=== PATIENT | male | born 1930 | race Caucasian/White ===

== ENCOUNTER 2017-04-10 10:34 | Inpatient (IN) | payer MEDICARE ==
[~2017-04-10] VITALS: Ht 177.8 cm; Wt 77.7 kg
[2017-04-10] VITALS (10 sets, daily range): BP systolic 72–146; BP diastolic 55–79; PULSE 81–91; RESP 14–22; O2SAT 94–100
--- NOTE | 2017-04-10 10:53 | ED.REPORT ---
HPI-Chest Pain 40 and Over Date of Service April 10, 2017 ED Provider: Brian Reyez MD The patient is an 87 year old male with history of hypertension, hyperlipidemia and prior strokes, who was sent to the emergency department from urgent care for upper chest pain that began 3 weeks ago. The pain goes up into his neck and jaw. He has also noticed shortness of breath. He has had intermittent episodes since onset. He states, "when I get outside it just feels like I am getting some poisonous gas." He goes on multiple walks each day and has been experiencing the episodes each time he goes on a walk. He is able to finish his walks. When he gets back home and rests his symptoms go away. His symptoms typically last for about 10-12 minutes. He denies diaphoresis, nausea, vomiting , chills, fever, cough, extremity pain or swelling, abdominal pain or back pain. His family is concerned because he has not looked well for a few weeks. He has been "stumbling" and seems generally off-balance. He has been refusing his medication, although he has still been taking aspirin. Nursing Notes Stated Complaint: CHEST PAIN Chief Complaint: Chest Pain Nursing Notes Reviewed: Yes ([employer], meds not reconciled) Allergies: Coded Allergies: No Known Allergies (Unverified Allergy, Unknown, 10/10/15) General Time Seen by MD: 10:52 Chief Complaint Chest pain Hx Obtained From: Patient, Daughter Arrived By: Walk-in Sudden in Onset?: Yes Onset Occurred: More than a week ago... Symptom Duration: Intermittent Location: : Chest left: Chest right Quality: Painful Severity: Current: No pain currently Severity: Maximum: Moderate Recent Healthcare: No recent doctor visit, No recent hospitalization Similar Sx Previous: Yes Past Medical History Past Medical History Hypertension Hx of TIA (2014) Hyperlipidemia Past Surgical History None reported Family History Noncontributory Smoking History Former Smoker (smoked for 40 years, quit over 30 years ago) Social History The patient lives at [place] with his . Drug Use: Denies drug use Other Social History: Good social support, , Local resident Ambulatory Status Independent Review of Systems Review of Systems Note: +neck/jaw pain Constitutional: Denies: Chills, Fever Respiratory: Reports: Shortness of breath, Denies: Non-productive cough Cardiovascular: Reports: Chest pain, Dyspnea on exertion GI: Denies: Abdominal pain, Nausea, Vomiting Musculoskeletal: Denies: Back pain, Extremity pain, Extremity swelling Complete sys rev & neg: except as marked. Physical Exam Initial Vital Signs Vital Signs (First) Date Time Temp Pulse Resp B/P Pulse Ox O2 Delivery O2 Flow Rate FiO2 04/10/17 10:39 36.4 86 132/78 96 Room Air 04/10/17 11:16 15 Initial VS: Reviewed Head / Eyes: Atraumatic, Normocephalic, PERRL ENT: Mucous membranes moist, Conjunctiva normal, No scleral icterus Neck: Supple, Non-tender, Full range of motion Lymphatic: No lymphadenopathy Extremities: Vascular intact, Neuro intact, No swelling, No tenderness Skin: Warm, Dry, No cyanosis Psychiatric: Mood/affect normal, Behavior normal, Normal thought content General/Constitutional: Awake, Alert, Cooperative Respiratory / Chest: Atraumatic, Breath sounds NL, Breath sounds = bilat, No respiratory distress, No rales, No rhonchi, No wheezing, No stridor, No chest tenderness Cardiovascular: Heart rate NL, Regular rhythm, Heart sounds NL, No murmurs, No rubs Abdomen: Atraumatic, Soft, Non-tender, McBurney's non-tender, No guarding, No rebound, BS normoactive, No distention, No hernia, No palpable mass Neurologic: Oriented X3, Speech NL, No motor deficits, No sensory deficits Mild memory problems. Interpretation & Diagnostics Lab Results Interpretation Result Diagram: 04/10/17 1050 04/10/17 1050 Test 04/10/17 10:50 White Blood Count 9.5th/mm3 (3.8-10.1) Red Blood Count 4.92mil/mm3 (4.40-5.80) Hemoglobin 15.4g/dL (13.8-17.2) Hematocrit 45.0% (41.0-50.0) Mean Corpuscular Volume 91.5fL (81-100) Mean Corpuscular Hemoglobin 31.3pg (27.0-35.0) Mean Corpuscular Hemoglobin Concent 34.2% (32.0-37.0) Red Cell Distribution Width 13.4% (12.3-15.4) Platelet Count 228bil/L (150-400) Neutrophils (%) (Auto) 62.8% (40-74) Lymphocytes (%) (Auto) 26.5% (14-46) Monocytes (%) (Auto) 8.1% (4-12) Eosinophils (%) (Auto) 1.8% (0-5) Basophils (%) (Auto) 0.6% (0-3) Sodium Level 135mEq/L (134-144) Potassium Level 4.8mEq/L (3.5-5.2) Chloride Level 94mEq/L (97-108) Carbon Dioxide Level 27mmol/L (18-29) Blood Urea Nitrogen 12mg/dL (8-27) Creatinine 1.00mg/dL (0.76-1.27) Estimat Glomerular Filtration Rate 75mL/min (>59) Glucose Level 334mg/dL (60-99) Calcium Level 10.0mg/dL (8.5-10.1) Magnesium Level 2.1mg/dL (1.6-2.6) Total Bilirubin 0.6mg/dL (0.0-1.2) Aspartate Amino Transf (AST/SGOT) 39U/L (0-50) Alanine Aminotransferase (ALT/SGPT) 46U/L (0-44) Alkaline Phosphatase 66U/L (25-160) Troponin T 0.126ug/L (0.0-0.011) Total Protein 7.6g/dL (6.4-8.4) Albumin 4.0g/dL (3.4-5.0) Lab Results Interpretation: CBC normal CMP Hyperglycemia Troponin elevated consistent with acute coronary syndrome ECG Interpretation ECG Interpretation: Sinus rhythm with a rate of 85 RBBB LAFB No acute ischemic changes No interval change when compared to EKG from 09/2015 Time: 11:10 Interpreted by: ED physician X-Ray Chest Interpretation Chest Xray Interpretation: IMPRESSION: Stable chest. No acute cardiac pulmonary process is suspected. Dictated by: Sebastien Romero M.D. on 04/10/2017 at 10:22 Interpretation / Wet Read by: Interpret - Radiologist Re-Eval/Medical Decision Source of Hx: Old records, Family Time of Eval: 11:06 Re-Evaluation/Progress Note: Discussed plan for admission with the patient and his family member. They understand and agree. All questions were addressed. Consultation #1: Referral / Consult Name: Cheryl Chandler MD Consulted With: Cardiology Call Returned at: 12:00 Note: The patient is agreeable with an echocardiogram, medicaiton, and admission. He does not want a cardiac catheterization at this time. Consultation #2: Referral / Consult Name: Magdaleno Lorenzana MD Consulted With: Hospitalist Call Returned at: 12:18 Freight Broker Agent: Will see patient, Agrees with eval, Agrees with plan, Accepts admit Counseled Regarding: Diagnosis, Lab results, Need for admission Discharge & Departure Departure Notes This is an 87-year-old male with mild memory issues, no prior history of known disease who has had prior TIAs, and takes only aspirin daily. He is apparently supposed to be on hypertensive medicine, but does not like taking medicines at all. He presents today with great difficulty-the assisted living where he lives , and his family have been adequately concerned that he come to the emergency department. The patient walks multiple times a day, this noted over the past 2- 3 weeks that anytime he walks he gets a chest discomfort (he is very specific that he does not get pain) that radiates into his neck and jaw and is like an ache. He continues his walk, and symptoms resolved once he rests. But every time he walks it recur. Apparently he did not look well when this happened this morning, and the facility is been trying to get him to calm C provider- call his family as the patient refused to come in by 911, who ultimately able to convince the patient to come to the emergency department. Here in the department the patient denies any pain medicine. He is also Hira about medical care and is not very excited about medications-he is under the belief that several medicines cause rash or skin problems (the family indicates this is simply not true numbness patient this impression or false memory, but regardless the patient's very has about taking any new medications due to this concerns regarding rashes) The patient's in no visible distress and has no overt clinically evident heart failure on exam. Patient has no clear acute ischemic or interval change compared prior EKG. However lab work is consistent with an elevated troponin which fits with the clinical presentation of unstable angina and in STEMI. he did have an aspirin prior to arrival, and after lengthy discussion agreed to nitro paste, and heparin administration of the department, and ultimately even a single dose of by mouth beta -valorie in the department. I had a long conversation at bedside with the patient and family. The family are obviously very interested in seeking medical care and when I recommended discussing his options with a dredge or barge shore hand-as I have indicated that he might be a reasonable For cardiac catheterization and is interested, but that it would involve medication compliance should he choose that route. In the ending combination of the patient's, family bedside he is agreed to admission, he is agreed to us at least medical therapy, and is agreed to see the dredge or barge shore hand discuss options available to him we can make a decision. I Was able to consult the dredge or barge shore hand Dr. Linares who saw the patient. Please see his note. Apparently the patient has declined cardiac catheterization at this time, but has agreed to attempting medical therapy. The patient's also agreed to admission at this time. Plan is continued heparinization, and a echo will be obtained was admitted to have help further direct therapy. The hospitalist is being paged. The patient is also informed that his test do indicate he has new-onset type II diabetes, I have focused on trying to get compliance with a cardiac regimen, and has not purchased the topic of trying medical therapy for the hyperglycemia. Primary Impression: Unstable angina Additional Impressions: Non-STEMI (non-ST elevated myocardial infarction) New onset type 2 diabetes mellitus Disposition: ADMITTED TO HOSPITAL Discharge Condition All VS Reviewed: Yes Condition: Stable Referrals: OTHER,PHYSICIAN (PCP) Scribe Attestation Portions of this note were transcribed by Kristal Guzman. I, Dr. Reyez personally performed the history, physical exam and medical decision-making; I reviewed and confirmed the accuracy of the information in the transcribed note. Signed by: Lyndon Mckeon, 04/10/2017 at 1230. Brian Reyez MD April 10, 2017 10:53 Kristal Guzman April 10, 2017 11:01
[2017-04-10 10:58] LABS: BASOPHILS % (AUTO) 0.6 % (0-3); EOSINOPHILS % (AUTO) 1.8 % (0-5); MONOCYTES % (AUTO) 8.1 % (4-12); Mean Corpuscular Hemoglobin 31.3 pg (27.0-35.0); Mean Corpuscular Volume 91.5 fL (81-100); NEUTROPHILS % (AUTO) 62.8 % (40-74); Platelet Count 228 bil/L (150-400)
[2017-04-10] MEDS ORDERED: Heparin 25K Unit/500mL 0.45 NS 25,000 UNIT in IV Premix 1 EACH IV ONE (11:15)
[2017-04-10] MEDS ORDERED: Nitroglycerin 2% 1 Gm Ointment TOPICAL SCH (11:15)
[2017-04-10] MEDS ORDERED: Heparin 5,000 Unit/mL Inj IVPUSH ONE (11:15)
--- NOTE | 2017-04-10 11:25 | DRSVH ---
PROCEDURE: X-RAY CHEST ONE VIEW, PORTABLE ([id number]) INDICATIONS: chest pain TECHNIQUE: One view of the chest was acquired. COMPARISON: [facility], CR, XR CHEST 1VW (PORTABLE), 07/31/2016, 2:57. FINDINGS: Surgical changes and devices: None. Lungs and pleura: There appears to be mild hyperexpansion of the lungs, which may be related to chron ic obstructive pulmonary disease, in the correct clinical setting. No focal consolidation, effusion, or pneumothorax is evident. Mediastinum: Mediastinal contours appear normal. Heart size is normal. There is aortic atheroscler osis. Bones and chest wall: No suspicious bony lesions. Degenerative changes of the spine and shoulders a re noted. Overlying soft tissues appear unremarkable. IMPRESSION: Stable chest. No acute cardiac pulmonary process is suspected. Dictated by: Sebastien oRmero M.D. on 04/10/2017 at 10:22 Approved by: Sebastien Romero M.D. on 04/10/2017 at 10:23
[2017-04-10 11:34] LABS: Magnesium 2.1 mg/dL (1.6-2.6)
[2017-04-10 11:49] LABS: TROPONIN T 0.126 ug/L (0.0-0.011)
[2017-04-10] MEDS ORDERED: ASPI325T32 PO (12:24)
[2017-04-10] MEDS ORDERED: Alum-Mag Hydrox-Simeth 30 mL Suspension PO PRN ×2 (12:45→13:45)
[2017-04-10] MEDS ORDERED: Ondansetron 2 mg/mL 2 mL Inj IVPUSH PRN ×2 (12:45→13:45)
[2017-04-10] MEDS ORDERED: Polyethylene Glycol (PEG) 17 Gm Powder PO PRN (13:45)
[2017-04-10] MEDS ORDERED: Heparin 25K Unit/500mL 0.45 NS 25,000 UNIT in IV Premix 1 EACH IV SCH (13:50)
[2017-04-10] MEDS ORDERED: Heparin 5,000 Unit/mL Inj IVPUSH PRN (13:50)
[2017-04-10] MEDS ORDERED: Glucose 40% Oral Gel 15 Gm Tube PO PRN (13:55)
--- NOTE | 2017-04-10 13:59 | CONS ---
[address] [address] CONSULTATION REPORT PATIENT: ALEXANDRA GUTIERREZ : 1930 MR#: [id number] ADMIT: 04/10/2017 JOB ID: [id number] CARDIOLOGY CONSULTATION: DATE OF SERVICE: 04/10/2017 REASON FOR CARDIOLOGY CONSULTATION: The Emergency Department physician, Brian Reyez, asked me to see this patient regarding exertional chest pain for the last three weeks. CHIEF COMPLAINT: Exertional chest pain, some shortness of breath. PRESENT HISTORY: This is an 87-year-old, male who has a history of hypertension, hyperlipidemia, TIA in 2014, noncritical carotid artery disease, moderate aortic stenosis based on echocardiogram in November 2015 with preserved LV function, was sent from Urgent Care to the emergency department because of above-mentioned chief complaint. According to the patient, from last three weeks, he noticed that whenever he goes for a walk he feels pressure in his chest as well as pain in his jaw which is not very intense. On a scale of 1-10, it was about 3-4 in intensity. It will continue till he walks; however when he sits up, it goes away. Duration 15-20 minutes. It has been happening everyday in the morning when he takes his first walk. Subsequent walk, he does not feel much. No dizziness or syncopal episode. However sometimes he gets shortness of breath. No fever, chills, PND, orthopnea or typical claudication pain. He had an echocardiogram in November 2015, and his LV ejection fraction was 65% to 70% with mild to moderate concentric LVH, moderate aortic stenosis with valve area 1.1 cm2 with peak aortic valve velocity 3 m/sec and mean gradient about 24.4 mmHg. Angiographic MRI in September 2015 did not reveal any critical carotid artery stenosis. Carotid Doppler in November 27, 2015, less than 50% bilateral ICA disease. The patient does not want to take any medication and he is on aspirin only. PAST MEDICAL HISTORY: History of moderate aortic stenosis, noncritical carotid artery disease, essential hypertension, hyperlipidemia, right bundle branch block, left anterior fascicular block, TIA. PAST SURGICAL HISTORY: Denies. FAMILY HISTORY: Noncontributory. SOCIAL HISTORY: He smoked about 40 years ago for a total of 40 years. Denies any excessive alcohol abuse. MEDICATIONS: He was taking aspirin. ALLERGIES: Denies any allergies. REVIEW OF SYSTEMS: Ten point review of systems were obtained. They were negative except as stated above. PHYSICAL EXAMINATION: Blood pressure 146/72, heart rate 83, respiratory rate 14, oxygen saturation room air 98%. Head: No significant anemia, jaundice. Neck: No apparent JVP. No obvious carotid bruit. Chest: No obvious crepitation or rhonchi. CVS: S1, S2 normal. No S3, no S4. Grade II-III/ ejection systolic murmur at the base as well as lower sternal area. Abdomen: Obese. No obvious pulsatile mass felt. No obvious hepatosplenomegaly. Extremities: Mild pedal edema. Vascular: No evidence of critical limb ischemia. MANAGER DESKTOP: Alert, oriented to time, place, and person. The patient is hard of hearing as well. LABORATORY DATA: Sodium 135, potassium 4.8, BUN 12, creatinine 1.0. Glucose 334. Magnesium 2.1 with total bilirubin 0.6, AST 39, ALT 46. Troponin T 0.126. Albumin 4.0. WBC 9.5, hemoglobin 15.4, platelets 228. IMAGING: X-ray chest: No acute cardiopulmonary pathology. EKG which I reviewed by myself revealed sinus rhythm with right bundle branch block, left anterior fascicular block which is old, left atrium enlargement without any new significant ST-T changes. QTc 486 msec. ASSESSMENT AND PLAN: Recurrent exertional chest pain for the last three weeks suggestive of unstable angina with abnormal troponin with likely underlying non ST-T myocardial infarction, chronic right bundle branch block, left anterior fascicular block, history of essential hypertension, hyperlipidemia, noncritical carotid artery disease and history of transient ischemic attack in the past. Considering his coronary artery disease risk factors, age, typical symptoms, abnormal troponin, likelihood of underlying coronary artery disease is very high. Discussed with the patient and family members about left heart catheterization in anticipation of revascularization as well as need for dual anti-platelet therapy, beta valorie, statin, BELKYS inhibitor, etc. for prison. The patient is not interested to have left heart catheterization or invasive procedure. However he agreed to take medications for a couple of months but he does not want to take it for longer duration. I will start him on aspirin and Plavix as well as heparin for total of 48 hours along with tolerable dose of beta valorie, high intensity statin. Down the road, if he remains hemodynamically stable, consider BELKYS inhibitor as well. Will get a 2D echo to assess any progression of aortic stenosis and LV function or rule out regional wall motion abnormalities. The patient and his family agreed with the plan. Tomorrow, my associate Dr. Willard, will be available to see the patient. TIME SPENT: Total time spent today including reviewing old records, about 70 minutes.
--- NOTE | 2017-04-10 13:59 | PCM.HPMED ---
Subjective Date of Service April 10, 2017 Primary Provider: Admitting Physician: Magdaleno Lorenzana MD Primary Care Physician: Manjinder Xavier DO Attending Physician: Magdaleno Lorenzana MD Admit Status: From the Emergency Department, 23-Hour Observation, Admit to [facility], [facility] Telemetry Chief Complaint: Crescendo chest pain History of Present Illness: This is an 87-year-old male with a 3 week history of exertional chest pain. The pain is described as a device in his chest which happens with walking. It seems to resolve after walking a certain length and/or stopping and resting. The pain does not radiate to the neck or arm. There are no associated symptoms including nausea, vomiting, diaphoresis, or dyspnea. The pain is not accompanied by palpitations. No recent URI symptoms. She denies any calf pain or swelling. The pain is not pleuritic. The pain is relatively mild when it occurs. He was brought in by family today because of the symptoms. He denies any heart history. He takes no regular medications other than aspirin 325 mg daily for nonspecific reasons. In the ED he had a relatively normal echocardiogram other than a bifascicular block. His troponin was mildly elevated. The patient does have a goal to lose either age 89 or 89. Another hand he is not interested in any invasive procedures including coronary catheterization. On the other hand he would like a brief attempt resuscitation in the event of cardiac arrest. He however would not want to be placed on a ventilator or pressors for critical illness. He is not sure about a feeding tube if she could not swallow he states he would kind of dependent situation. He is noted to have a glucose of 336 in the ED, he denies any polyuria or polydipsia. He also denies weight change or known history of diabetes. Review of Systems: No headache, hearing problems. She is having some short-term memory loss issues. He denies any visual changes. No rhinorrhea or cough or sore throat. No fevers or chills. His weight is slightly up. He denies any constipation, diarrhea or blood per rectum. No hematuria or dysuria or urinary retention. No anxiety or depression. Also reviewed and otherwise negative except as noted in history of present illness. Allergies Coded Allergies: No Known Allergies (Unverified Allergy, Unknown, 10/10/15) Home Medications Aspirin 325 mg daily PMH Unremarkable Family History Negative for coronary artery disease Social History Occupation: retired from [employer] Hx Alcohol Use: Yes (Glass wine per day) Hx Substance Use: No Smoking Status: Former Smoker Living Arrangement: with Family Exam Vital Signs Vital Sign - Last Date Time Temp Pulse Resp B/P Pulse Ox O2 Delivery O2 Flow Rate FiO2 04/10/17 13:46 85 04/10/17 13:33 36.6 20 108/55 100 Room Air Exam Oriented 3. No distress. Fluent speech. Normal affect. Normal skull. He has little hair. Normal nose and ears. Anicteric sclera, symmetric pupils Oropharynx is unremarkable, no facial droop. Neck is supple, normal thyroid. No adenopathy. Lungs are clear, normal effort rate. Heart is regular without murmur gallop or rub. Abdomen soft, nondistended or tender. Extremities are free of pedal edema. Good radial and pedal pulses. Skin is free of rash, lesions. No petechiae or ecchymosis. Joints are grossly normal. Cranial nerves are grossly normal. Motor strength is normal in all extremities. Normal muscular tone. Lab and Diagnostics Labs Troponin 0.126 Result Diagram: 04/10/17 1050 04/10/17 1050 X-Rays, CTs and MRIs Chest x-ray is unremarkable 12-lead ECG Bifascicular block with no ST segment elevations. Assessment & Plan 1. Possible and NSTEMI, POA. The patient appears to be all right with medical therapy but does not wanting any invasive procedures such as PCI. At this point we will heparinize him for 24-48 hours use aspirin as well as beta blockade and start Lipitor. We will follow serial troponins, fasting lipids. 2. Hyperglycemia, POA. We will place patient on correctional lispro and follow closely. We will also add an A1c to his laboratories. The patient is DO NOT RESUSCITATE, DO NOT INTUBATE in the event of an arrest. He also declines ICU level care including pressors were mechanical ventilation. Observation status with at least one night anticipated at this point. Pain Evaluation: Adequate Pain Control Resuscitation Status: DNR/DNI:Do Not Resuscitate/Intubate Time spent 45 minutes Magdaleno Lorenzana MD April 10, 2017 13:59
--- NOTE | 2017-04-10 17:17 | NUR ---
Social Work: Initial assessment D: Per EMR review, pt is an 87 year old male admitted for Unstable Angina. Pt is Medicare with AARP supplement; pt has no LTC insurance or VA Benefits. PCP is Tayo Xavier DO. NOK Is Amos Lorenzana, Dtr, . Advanced directives completed and requested copy for chart. RA score not entered at this time. PRECISION INSTRUMENT AND TOOL MAKER met with pt at bedside. Sw role explained and contact info provided. See initial assessment. Pt is a resident at [facility]. He is I with all ADLs and uses no DME. Pt has been I with ambulation since admission. Pt does not drive and has never had HH or penitentiary. 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 He provides almost all of his 's care including dressing, toileting and feeding. [facility] Staff is currently caring for the pt's but he is eager to return to assist and help her. Pt states that his daughter will transport him home when ready. A: Pt who is a resident at [facility] and I at baseline. P: Anticipate pt to return to [facility] pending assessment from [facility] staff. PRECISION INSTRUMENT AND TOOL MAKER will make phone contact tomorrow to discuss bedside assessment and pt's return. JEREMIE Islas Addendum: 04/10/17 at 1731 by RADHA MCKEON SS Amended: Links added.
[2017-04-10] MEDS: Insulin LISPRO 300 Unit/3 mL Inj SUBQ SCH ×2 (17:30→21:53)
--- NOTE | 2017-04-10 19:03 | NUR ---
Tele/Heparin gtt No reports of chest pain/pressure/discomfort. Tele SR 70s-80s with an IVCD and occasional PACs/PVCs. No reports of SOB/dizziness. SPO2 on RA 100%. Denies cough, lung sounds are clear. No reports of n/v/d/c or abdominal pain. Patient is alert and oriented x3 with mild dementia/forgetfulness. Heparin gtt infusing at 1050 units per hour per MD orders.
[2017-04-10 22:03] LABS: APPEARANCE,URINE CLEAR (CLEAR,HAZY); COLOR,URINE YELLOW (YELLOW); OCCULT BLOOD,URINE NEGATIVE (NEGATIVE); UROBILINOGEN,URINE NORMAL (NORMAL)
--- NOTE | 2017-04-11 04:41 | NUR ---
0400 VS pt refused 0400 VS PTT draw at 0545 will try and get VS then
[2017-04-11 05:00] VITALS: BP 108/62; PULSE 85; RESP 20; O2SAT 96
[2017-04-11 06:11] VITALS: PULSE 69
--- NOTE | 2017-04-11 06:13 | NUR ---
IV pt pulled his IV out but with some talking let me replace it and restart his heparin gtt
--- NOTE | 2017-04-11 06:14 | NUR ---
behavior/tele/no pain pt hasn't been in a hospital much and not been sick, pt having a hard time understanding hospital policy and IVs, tele, medications, labs. pt denies any pain and so feels that he is better, explained lab values and the reason we wanted him to take these medications and monitoring his I&Os and tele. pt states he understands and is compliant but later will not be compliant. pt removed his IV and at first refused to let it be replaced so the heparin gtt could be cont. after a long talk with pt he let IV be restarted and heparin gtt be restarted. He even agreed to talk to the on site nurse this morning about a heart cath. tele SR with IVCD, PACs and PVCs.
[2017-04-11 08:00] VITALS: PULSE 67
[2017-04-11] MEDS: Insulin LISPRO 300 Unit/3 mL Inj SUBQ SCH ×4 (08:00→22:00)
[2017-04-11 08:09] LABS: BASOPHILS % (AUTO) 0.6 % (0-3); EOSINOPHILS % (AUTO) 2.8 % (0-5); MONOCYTES % (AUTO) 9.5 % (4-12); Mean Corpuscular Hemoglobin 31.3 pg (27.0-35.0); Mean Corpuscular Volume 91.4 fL (81-100); NEUTROPHILS % (AUTO) 52.2 % (40-74); Platelet Count 216 bil/L (150-400)
--- NOTE | 2017-04-11 08:10 | PCM.PNMED ---
Subjective Date of Service April 11, 2017 Subjective Pt seen and examined at bedside tomorrow. Feeling better in regards to chest pain though it is generally only present with exertion and he is currently lying in bed. He denies any discomfort or difficulty breathing at this time. Has considered further to possibility of heart catheterization, which he now would like. No other complaints at this time. He is NPO, but denies nausea/ vomiting. No chills/shakes. Exam Vital Signs Vital Sign - Last Date Time Temp Pulse Resp B/P Pulse Ox O2 Delivery O2 Flow Rate FiO2 04/11/17 06:11 69 04/11/17 05:00 36.7 20 108/62 96 Room Air Intake and Output 04/10/17 04/10/17 04/11/17 Cumulative From/Thru 15:00 23:00 07:00 04/10/17 10:39 - 04/11/17 06:45 Intake Total 300 ml 906 ml 1206 ml Output Total 775 ml 1425 ml 2200 ml Balance -475 ml -519 ml -994 ml Intake Oral 300 ml 520 ml 820 ml IV Total 386 ml 386 ml Output Urine Total 775 ml 1425 ml 2200 ml # Bowel Movements 0 0 General: Alert, Oriented X3, Cooperative, No Acute Distress, Other (Alert to siuation, place, person, recalls previous days conversation well. ) Mouth: Mucous Membr Moist/[place] Chest & Lungs: Clear to auscultation & percussion Cardiovascular: Regular Rate/Rhythm, Other ((+) systolic murmur) Extremities: No cyanosis/clubbing/edma bilat Neurological: Grossly Neurologically Intact IVs and Medications Medications Reviewed: Medications were reviewed in detail Lab and Diagnostics Result Diagram: 04/10/17 1050 04/10/17 1050 X-Rays, CTs and MRIs Chest x-ray is unremarkable 12-lead ECG Bifascicular block with no ST segment elevations. Assessment & Plan 87-year-old male with a 3 week history of exertional chest pain. # NSTEMI, POA: - Pt initially desired medical therapy only, left on heparin drip overnight with plan for transition to Plavix and Aspirin - Pt now considered further, though he wishes to remain DNR/DNI he would like to under catheterization and possible stenting to give him best chances at longer life. His is alert oriented, understands risks and benefits of procedure - Troponin values remain upward tredning. - Will continue Heparin drip at this time - Cardiology already consulted, will consider to follow for expectant Cath. possibilty later today. #. Hyperglycemia, POA. We will place patient on correctional lispro and follow closely. We will also add an A1c to his laboratories. Pain Evaluation: Adequate Pain Control Resuscitation Status: DNR/DNI:Do Not Resuscitate/Intubate Time spent 25 minutes Kale Hand DO April 11, 2017 08:10
--- NOTE | 2017-04-11 09:05 | NUR ---
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 She states that the pt is Independent and only receives assistance for his eye drops. They do not need to complete a bedside assessment for the patient and he can return whenever he is medically stable. A: Pt who is a resident at [facility]. Pt has been I during admission P: Anticipate the pt to return to the [facility] once medically stable; MACHINE HEEL SPRAYER to continue to follow. JEREMIE Islas
[2017-04-11 09:10] VITALS: BP 113/62; PULSE 67; RESP 16; O2SAT 95
--- NOTE | 2017-04-11 09:33 | DRSVH ---
[facility] [address] [place] [address] Echocardiogram Report Name: ALEXANDRA GUTIERREZ Study Date: 04/10/2017 Height: 70 in Hospital Exam Location: [facility] Weight: 175 lb Gender: Male BSA: 2.0 m2 : 1930 Age: 87 yrs BP: 128/78 mm Hg Reason For Study: Chest pain Performed By: Tali Olivera Referring Physician: GWENDOLYN NIÑO Interpretation Summary The left ventricle is normal in size. There is mild concentric left ventricular hypertrophy. Left ventricular systolic function is normal. The ejection fraction is estimated to be 60-65%. There has been no significant change since the previous study. There are no obvious focal wall motion abnormalities noted but poor endocardial definition reduces the sensitivity for the detection of such. Assessment of diastolic parameters indicates a relaxation abnormality of the left ventricle, consistent with normal filling pressures. The right ventricle is grossly normal size. The right ventricular systolic function is normal. Pulmonary artery pressures cannot be estimated because of the lack of a measurable TR jet velocity. Both atria are normal in size. There is mild to moderate aortic stenosis. There has been no significant change since the previous study. The calculated aortic valve area is 1.3 cm2. The aortic valve mean gradient is 20 mmHg. There is no other significant valvular heart disease. The aortic root is normal size. Procedure: A two-dimensional transthoracic echocardiogram with color flow and Doppler was performed. The study quality was technically adequate. Comparison is made with the echocardiogram of 11/27/2015. Patient was in sinus rhythm with a heart rate varying from 78-86. Left Ventricle: The left ventricle is normal in size. There is mild concentric left ventricular hypertrophy. Left ventricular systolic function is normal. The ejection fraction is estimated to be 60-65%. There has been no significant change since the previous study. There are no obvious focal wall motion abnormalities noted but poor endocardial definition reduces the sensitivity for the detection of such. Assessment of diastolic parameters indicates a relaxation abnormality of the left ventricle, consistent with normal filling pressures. Right Ventricle: The right ventricle is grossly normal size. The right ventricular systolic function is normal. Atria: Both atria are normal in size. The interatrial septum is intact with no evidence for an atrial septal defect. Mitral Valve: The mitral valve leaflets are slightly calcified. There is mild mitral annular calcification. There is trace mitral regurgitation. Aortic Valve: The aortic valve is moderately calcified. There is mild to moderate aortic stenosis. The aortic valve mean gradient is 20 mmHg. There has been no significant change since the previous study. The calculated aortic valve area is 1.3 cm2. There is trace aortic regurgitation. Tricuspid Valve: The tricuspid valve is normal in structure and function. There is trace tricuspid regurgitation. Pulmonary artery pressures cannot be estimated because of the lack of a measurable TR jet velocity. Pulmonic Valve: The pulmonic valve is normal in structure and function. There is trace pulmonic regurgitation. There is no other significant valvular heart disease. Great Vessels: The aortic root is normal size. The ascending aorta is normal in size. The pulmonary artery is normal size. The inferior vena cava was not well visualized. Pericardium/ Pleura There is no pericardial effusion. There is no pleural effusion. MMode/2D Measurements & Calculations LVIDd: 4.7 cm RA long axis LVOT diam LVIDs: 3.3 cm LA A2 area: 20.0 cm FS: 30.0 % LA A4 area: 19.3 cm RA area asc Aorta EPSS: 0.95 cm LA length (vol): 5.8 cm Diam: 3.2 cm IVSd: 1.3 cm LA vol: 57.0 ml : 14.3 cm LVPWd: 1.2 cm LA vol index RA vol: 36.8 ml RA : 28.9 ml/m2 : 18.7 mm2 LV dorsey. diameter/BSA LV sys. diameter/BSA TAPSE: 2.0 cm (cm/m^2): 2.4 (cm/m^2): 1.7 Doppler Measurements & Calculations Ao V2 max: 271.8 cm/secMV E max sawyer MV E/A: 0.56 PA V2 max Ao max P.6 mmHg : 63.7 cm/sec Med Peak E' Sawyer : 118.8 cm/sec Ao mean P.1 mmHg MV A max sawyer PA mean PG LVOT Max Sawyer : 113.8 cm/sec E/E' med: 15.2 : 2.0 mmHg : 103.3 cm/sec Lat Peak E' Sawyer LAMIN(I,D): 1.3 cm sev ratio: 0.38 E/E' lat: 12.3 E/e' average MV dec time: 0.19 sec Ao V2 mean LV V1 max PG PA V2 mean : 216.6 cm/sec : 63.9 cm/sec Ao V2 VTI: 54.1 cm LV V1 VTI PA pr(Accel) LAMIN(V,D): 1.3 cm2 : 20.4 cm : 36.6 mmHg LAMIN indexed to BSA (cm^2/m^2): 0.66 Reading Physician:LEVI
[2017-04-11] MEDS: Isosorbide Mononitrate 60 mg ER24 Tablet PO SCH (11:19)
--- NOTE | 2017-04-11 11:52 | NUR ---
Case Management: Clarification of patient status: inpt per MD order on 04/11/17. Frantz Coronado RN
--- NOTE | 2017-04-11 13:36 | PCM.PNCARD ---
Subjective Date of service April 11, 2017 Chief Complaint CP, although the patient continues to change his story because of dementia Constitutional: Denies: Fever ENT: Denies: Ear Discharge, Ear Pain Eyes: Denies: Blurred Vision Cardiovascular: Denies: Chest Pain, Irregular Heart Rate Respiratory: Denies: Cough, Cough with bloody sputum, SOB with Exertion, Shortness of Breath Gastrointestinal: Denies: Abdominal Pain, Blood in stool (red) Genitourinary: Denies: No burning or pain with urination Neurological: Reports: Confusion, Denies: Change in LOC, Dizziness Endocrine: Reports: Blood Glucose Review Exam Vital Signs Vital Sign - Last Date Time Temp Pulse Resp B/P Pulse Ox O2 Delivery O2 Flow Rate FiO2 04/11/17 09:10 37.2 67 16 113/62 95 Room Air Intake and Output 04/10/17 04/10/17 04/11/17 Cumulative From/Thru 15:00 23:00 07:00 04/10/17 10:39 - 04/11/17 06:45 Intake Total 300 ml 906 ml 1206 ml Output Total 775 ml 1425 ml 2200 ml Balance -475 ml -519 ml -994 ml Intake Oral 300 ml 520 ml 820 ml IV Total 386 ml 386 ml Output Urine Total 775 ml 1425 ml 2200 ml # Bowel Movements 0 0 General: Pleasant Cooperative Skin: Warm & dry to touch Head: Normocephalic Chest: Clear auscultation w/o rales/wheeze Cardiac: Regular rhythm Systolic murmur Abdomen: Abdomen soft Extremities: Warm w/o deformities,erythema noted Neurological: Alert & oriented Psychological: Reduced memory Lab and Diagnostics Labs CBC Test 04/11/17 04:30 White Blood Count 9.3th/mm3 (3.8-10.1) Red Blood Count 4.64mil/mm3 (4.40-5.80) Hemoglobin 14.5g/dL (13.8-17.2) Hematocrit 42.4% (41.0-50.0) Mean Corpuscular Volume 91.4fL (81-100) Mean Corpuscular Hemoglobin 31.3pg (27.0-35.0) Mean Corpuscular Hemoglobin Concent 34.2% (32.0-37.0) Red Cell Distribution Width 13.4% (12.3-15.4) Platelet Count 216bil/L (150-400) Neutrophils (%) (Auto) 52.2% (40-74) Lymphocytes (%) (Auto) 34.7% (14-46) Monocytes (%) (Auto) 9.5% (4-12) Eosinophils (%) (Auto) 2.8% (0-5) Basophils (%) (Auto) 0.6% (0-3) CMP Test 04/10/17 10:50 04/10/17 14:11 04/10/17 17:45 04/11/17 04:30 Hemoglobin A1c 10.8% Magnesium Level 2.1mg/dL Total Bilirubin 0.6mg/dL Aspartate Amino Transf (AST/SGOT) 39U/L Alanine Aminotransferase (ALT/SGPT) 46U/L Alkaline Phosphatase 66U/L Total Protein 7.6g/dL Albumin 4.0g/dL Triglycerides Level 97mg/dL Cholesterol Level 188mg/dL LDL Cholesterol, Calculated 113.600mg/dL VLDL Cholesterol 19.400mg/dL HDL Cholesterol 55mg/dL Cholesterol/HDL Ratio 3.42 Troponin T 0.289ug/L Sodium Level 137mEq/L Potassium Level 4.2mEq/L Chloride Level 100mEq/L Carbon Dioxide Level 23mmol/L Blood Urea Nitrogen 14mg/dL Creatinine 0.80mg/dL Estimat Glomerular Filtration Rate 97mL/min Glucose Level 208mg/dL Calcium Level 9.1mg/dL Result Diagram: 04/11/1742904/11/17429 Additional Diagnostics: Echocardiogram Report Name: ALEXANDRA GUTIERREZ Study Date: 04/10/2017 Height: 70 in Hospital Exam Location: [facility] Weight: 175 lb Gender: Male BSA: 2.0 m2 : 1930 Age: 87 yrs BP: 128/78 mm Hg Reason For Study: Chest pain Performed By: Tali Olivera Referring Physician: GWENDOLYN NIÑO Interpretation Summary The left ventricle is normal in size. There is mild concentric left ventricular hypertrophy. Left ventricular systolic function is normal. The ejection fraction is estimated to be 60-65%. There has been no significant change since the previous study. There are no obvious focal wall motion abnormalities noted but poor endocardial definition reduces the sensitivity for the detection of such. Assessment of diastolic parameters indicates a relaxation abnormality of the left ventricle, consistent with normal filling pressures. The right ventricle is grossly normal size. The right ventricular systolic function is normal. Pulmonary artery pressures cannot be estimated because of the lack of a measurable TR jet velocity. Both atria are normal in size. There is mild to moderate aortic stenosis. There has been no significant change since the previous study. The calculated aortic valve area is 1.3 cm2. The aortic valve mean gradient is 20 mmHg. There is no other significant valvular heart disease. The aortic root is normal size. Assessment & Plan Problems: (1) Non-STEMI (non-ST elevated myocardial infarction) Plan: This is a 87 y/o male with NSTEMI. Family were at bedside and explained to me that over the past few months he has had reduced memory and has dementia. Patient did change his story when I was talking to him in comparison to what I got from the resident. Currently he is stable and denies any chest pain. 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 Given this, I certainly would recommend conservative management but make an attempt to treat his angina with aggressive anti-anginal therapy. I have recommended to start him on Imdur, and increase his metoprolol tartrate to 25 mg bid and add clopidogrel 75 mg once a day. He was give clopidogrel 300 mg once yesterday. He will nee to continue with IV heparin until tomorrow morning and then we will ask him to ambulate and see how he does. If he has no chest pain then we can tentatively discharge him Friday/Friday. His echocardiogram is reassuring showing no LV WMAs and normal LVEF. His has not changed since prior echo study and has no diastolic CHF. Depending on he does tomorrow, cardiology will follow up prn for now. Family agree with plan. Status: Acute ICD Code: I21.4 Pain Evaluation: Adequate Pain Control Resuscitation Status: DNR/DNI:Do Not Resuscitate/Intubate Time spent 20 minutes Cory Willard MD April 11, 2017 13:36
[2017-04-11 16:25] VITALS: BP 105/53; PULSE 66; RESP 18; O2SAT 92
--- NOTE | 2017-04-11 18:44 | NUR ---
Tele/Heparin Reported one "just a couple of seconds" chest pain episode early this AM. No reports of chest pain/pressure/discomfort since then. Tele SR 70s-80s with an IVCD and occasional PACs/PVCs. No reports of SOB/dizziness. SPO2 on RA mid to high 90s%. Denies cough, lung sounds are clear. No reports of n/v/d/c or abdominal pain.Voiding without complication. Good strength for age. Heparin gtt currently infusing at 1175 units per hour per protocol.
[2017-04-11 20:04] VITALS: BP 117/61; PULSE 68; RESP 16; O2SAT 93
--- NOTE | 2017-04-11 21:13 | NUR ---
Agitation Patient agitated about his tele, IV, treatment plan. Pulled off tele leads and refused to have them put back during shift change. Page to hospitalist. Patient putting call light on repeatedly and asking for heparin gtt and IV to be DC'd Explained treatment plan to patient, that drip is to be discontinued in the morning to give his other medications time to become effective. Patient is not satisfied with this answer, demanding to speak with a physician. Page to hospitalist at [phone]. Awaiting replay. Addendum: 04/11/17 at 7 by CAMERON MARCUS RN Hospitalist to bedside to speak with patient. Per hospitalist, patient refusing heparin gtt, OK to saline lock patient. Patient saline locked. Patient states he feels better with IV saline locked, plans to go to bed.
[2017-04-12 05:31] VITALS: BP 138/74; PULSE 80; RESP 16; O2SAT 95
[2017-04-12 05:35] VITALS: PULSE 74
[2017-04-12 08:14] VITALS: BP 116/64; PULSE 62; RESP 20; O2SAT 94
[2017-04-12] MEDS: Insulin LISPRO 300 Unit/3 mL Inj SUBQ SCH ×4 (08:26→22:05)
[2017-04-12] MEDS: Isosorbide Mononitrate 60 mg ER24 Tablet PO SCH (08:26)
[2017-04-12 12:46] VITALS: BP 114/77; PULSE 65; RESP 20; O2SAT 96
--- NOTE | 2017-04-12 15:19 | PCM.PNMED ---
Subjective Date of Service April 12, 2017 Subjective Patient notes he feels much improved today. He is very reluctant to initiate any additional medications but is still willing to work with hospital team and follow recommendations to a degree. He self discontinued heparin last night however in spite of orders to continue overnight, but seems to have suffered no ill effects. He has no other acute complaints at this time notes is expressing no chest pain pressure palpitations or shortness of breath. Exam Vital Signs Vital Sign - Last Date Time Temp Pulse Resp B/P Pulse Ox O2 Delivery O2 Flow Rate FiO2 04/12/17 12:46 36.6 65 20 114/77 96 Room Air Intake and Output 04/11/17 04/11/17 04/12/17 Cumulative From/Thru 15:00 23:00 07:00 04/10/17 10:39 - 04/12/17 06:36 Intake Total 236 ml 457 ml 1899 ml Output Total 1050 ml 3250 ml Balance -814 ml 457 ml -1351 ml Intake Oral 236 ml 120 ml 1176 ml IV Total 337 ml 723 ml Output Urine Total 1050 ml 3250 ml # Voids 2 2 # Bowel Movements 0 Exam General: Alert, Oriented X3, Cooperative, No Acute Distress Mouth: Mucous Membranes Moist/[place] Chest & Lungs: Clear to auscultation & percussion Cardiovascular: Regular Rate/Rhythm,(+) systolic murmur Extremities: No cyanosis/clubbing/edema bilat Neurological: Grossly Neurologically Intact IVs and Medications Medications Reviewed: Medications were reviewed in detail Lab and Diagnostics Result Diagram: 04/12/17 0330 04/11/17 0430 X-Rays, CTs and MRIs Chest x-ray is unremarkable 12-lead ECG Bifascicular block with no ST segment elevations. Assessment & Plan 87-year-old male with a 3 week history of exertional chest pain. # NSTEMI, POA: - Pt initially desired medical therapy only, left on heparin drip overnight with plan for transition to Plavix and Aspirin - Pt now considered further, though he wishes to remain DNR/DNI he would like to under catheterization and possible stenting to give him best chances at longer life. His is alert oriented, understands risks and benefits of procedure - Troponin values remain upward tredning, as course of treatment is already planned we have stopped trending troponin values. - Heparin had been refused by patient overnight now discontinued. - Initiation of Imdur appears to been tolerated without ill effects, as perhaps benefiting patient given his increased activity this morning. Will titrate metoprolol to a goal dose of 25 from current dose of 12.5 twice a day. Discussed additionally initiating amlodipine if blood pressure remains at a stable level however patient is adamant he wishes to take no additional medications his only consented to increase her Toprol dosage as it will not increase his daily pill burden. - As such increase in metoprolol be conducted today, may consider further conversation with patient regarding amlodipine tomorrow or this may be deferred until discharge follow-up. - Cardiology already consulted, support decision for medical management. We continue to appreciate the recommendations. #. Hyperglycemia, POA. - Blood sugars have remained persistently elevated - Patient has been increased to a medium dose correctional scale response Given need for medication titration and close monitoring in the setting of possible NSTEMI and certain severe coronary artery disease, rate of into midnights as needed for optimal medical stabilization and treatment. Pain Evaluation: Adequate Pain Control Resuscitation Status: DNR/DNI:Do Not Resuscitate/Intubate Time spent 25 minutes Kale Hand DO April 12, 2017 15:19
[2017-04-12 17:48] VITALS: BP 131/73; PULSE 59; RESP 20; O2SAT 96
--- NOTE | 2017-04-12 18:18 | NUR ---
Activity/Telemetry Patient A&Ox3. Pleasant and cooperative with staff. Denies pain/discomfort. He is wearing street clothes and has taken frequent walks around unit but understands he needs to stay on the unit and has been compliant with this request. Refuses to wear telemetry box, stating " there is nothing wrong with my heart". Otherwise compliant with all meds/care. VSS. Call light within reach and all needs addressed at this time.
[2017-04-12 20:27] VITALS: BP 126/62; PULSE 60; RESP 16; O2SAT 96
[2017-04-13 04:00] VITALS: BP 134/70; PULSE 63; RESP 16; O2SAT 95
--- NOTE | 2017-04-13 05:46 | NUR ---
Rest Patient A&Ox3, pleasant and cooperative with care. Patient up walking around unit in the evening before returning to his room. After HS blood glucose check and insulin, patient announced he wanted to go to sleep. Patient asleep without difficulty through the night. Continue to monitor.
[2017-04-13 07:52] VITALS: BP 145/74; PULSE 58; RESP 16; O2SAT 96
[2017-04-13] MEDS: Insulin LISPRO 300 Unit/3 mL Inj SUBQ SCH (08:00)
--- NOTE | 2017-04-13 08:00 | NUR ---
[facility] Signed
[2017-04-13] MEDS: Isosorbide Mononitrate 60 mg ER24 Tablet PO SCH (08:01)
--- NOTE | 2017-04-13 09:16 | PCM.DC.MED ---
Discharge Summary Date of Service April 13, 2017 Dates of Hospitalization Date of Hospital Admission April 10, 2017 at 12:42 Date of Discharge: April 13, 2017 Providers: Admitting Physician: Magdaleno Lorenzana MD Primary Care Physician: Manjinder Xavier DO Attending Physician: Magdaleno Lorenzana MD Diagnosis at Time of Discharge Diagnosis at Time of Discharge 1. NSTEMI 2. Exertional Dyspnea 3. Diabetes Mellitus type II, poorly controlled Consultations Cardiology - Dr. Calvert Procedures XRay, CTs & MRIs Chest x-ray is unremarkable ECG 12 Lead Bifascicular block with no ST segment elevations. Brief History As per HPI, "This is an 87-year-old male with a 3 week history of exertional chest pain. The pain is described as a device in his chest which happens with walking. It seems to resolve after walking a certain length and/or stopping and resting. The pain does not radiate to the neck or arm. There are no associated symptoms including nausea, vomiting, diaphoresis, or dyspnea. The pain is not accompanied by palpitations. No recent URI symptoms. She denies any calf pain or swelling. The pain is not pleuritic. The pain is relatively mild when it occurs. He was brought in by family today because of the symptoms. He denies any heart history. He takes no regular medications other than aspirin 325 mg daily for nonspecific reasons. In the ED he had a relatively normal echocardiogram other than a bifascicular block. His troponin was mildly elevated. The patient does have a goal to lose either age 89 or 89. Another hand he is not interested in any invasive procedures including coronary catheterization. On the other hand he would like a brief attempt resuscitation in the event of cardiac arrest. He however would not want to be placed on a ventilator or pressors for critical illness. He is not sure about a feeding tube if she could not swallow he states he would kind of dependent situation. He is noted to have a glucose of 336 in the ED, he denies any polyuria or polydipsia. He also denies weight change or known history of diabetes." Hospital Course 87-year-old male with a 3 week history of exertional chest pain. # NSTEMI, POA with underlying vascular disease: - Pt desired medical therapy only, left on heparin drip overnight with plan for transition to Plavix and Aspirin.-Troponin values remain upward trending, which likley represented ACS. Pt tolerated heparin drip without complication or bleeding and was transitioned successfully to Plavix and ASA prior to discharge. #Unstable Angina: Though pt never endorses margie chest pain, he did suffer from exertional dyspnea, which appeared improved with medication management. Main intervention during hospital stay was initiation of Imdur which pt tolerated well without hypotension or other side effects. appears to been tolerated without ill effects. Subsequently Metoprolol, previously at a dose of 12.5mg was titrated to 25mg to addition help to reduce heart strain. This combination yielded a stable blood pressure with essentially resolved symptoms of dyspnea with exertion at time of discharge. Cardiology additionally recommended addition of Amlodipine if BP stable, which is was, however patient adamantly refused, stating he was already taking many more medications than he desired and did not want and add another regardless of potential benefit. Given improved symptoms, this was not unreasonable, pt encouraged to keep good follow up and consider this addition in future especially should symptoms return. #. Hyperglycemia, POA. DM type II - Blood sugars remained persistently elevated, treated with sliding scale insulin during hospital stay. - This is apparently a new diagnosis but may have been acknowledged previously but patient declined treatment. - He required frequent sliding scale insulin to maintain adequate blood sugars - Patient discharged on new medication of Metformin at 500mg PO BID, but will almost certainly require further titration to achieve ideal blood sugar control given hA1C greater than 10. Exam Vital Signs (Last) Date Time Temp Pulse Resp B/P Pulse Ox O2 Delivery O2 Flow Rate FiO2 04/13/17 07:52 36.7 58 16 145/74 96 Room Air Exam General: Alert, Oriented X3, Cooperative, No Acute Distress Mouth: Mucous Membranes Moist/[place] Chest & Lungs: Clear to auscultation & percussion Cardiovascular: Regular Rate/Rhythm,(+) systolic murmur Extremities: No cyanosis/clubbing/edema bilat Neurological: Grossly Neurologically Intact Test 04/10/17 10:50 04/10/17 14:11 04/10/17 17:45 04/10/17 21:48 Hemoglobin A1c 10.8% (4.8-5.6) Magnesium Level 2.1mg/dL (1.6-2.6) Total Bilirubin 0.6mg/dL (0.0-1.2) Aspartate Amino Transf (AST/SGOT) 39U/L (0-50) Alanine Aminotransferase (ALT/SGPT) 46U/L (0-44) Alkaline Phosphatase 66U/L (25-160) Total Protein 7.6g/dL (6.4-8.4) Albumin 4.0g/dL (3.4-5.0) Triglycerides Level 97mg/dL (0-149) Cholesterol Level 188mg/dL (100-199) LDL Cholesterol, Calculated 113.600mg/dL (0-99) VLDL Cholesterol 19.400mg/dL HDL Cholesterol 55mg/dL (>39) Cholesterol/HDL Ratio 3.42 (0.0-4.4) Troponin T 0.289ug/L (0.0-0.011) Urine Color Yellow (YELLOW) Urine Appearance Clear (CLEAR,HAZY) Urine pH 7.0 (5.0-8.0) Urine Specific Oracle 1.010 (1.003-1.035) Urine Protein Negativemg/dL (NEG,TRACE) Urine Glucose (UA) >1000mg/dL (NEGATIVE) Urine Ketones Tracemg/dL (NEGATIVE) Urine Occult Blood Negative (NEGATIVE) Urine Nitrite Negative (NEGATIVE) Urine Bilirubin Negative (NEGATIVE) Urine Urobilinogen Normalmg/dL (NORMAL) Urine Leukocyte Esterase Negative (NEGATIVE) Urine RBC 0-2/hpf (0-2) Urine WBC 0-5/hpf (0-5) Urine Epithelial Cells Occasional/hpf (NONE-MOD) Urine Crystals Amorphous urates (NONE Urine Bacteria Few/hpf (NONE-FEW) Urine Hyaline Casts None/lpf (NONE) Urine Granular Casts None seen (NONE SEEN) Urine Waxy Casts None seen (NONE SEEN) Urine Red Blood Cell Casts None seen (NONE SEEN) Urine White Blood Cell Casts None seen (NONE SEEN) Urine Mucus None seen (None Seen) Urine Trichomonas None seen (NONE SEEN) Urine Yeast None (NONE SEEN) Urinalysis Comment None Urine Culture Reflexed Not indicated Test 04/11/17 04:30 04/12/17 03:30 04/12/17 12:10 White Blood Count 9.3th/mm3 (3.8-10.1) Red Blood Count 4.64mil/mm3 (4.40-5.80) Mean Corpuscular Volume 91.4fL (81-100) Mean Corpuscular Hemoglobin 31.3pg (27.0-35.0) Mean Corpuscular Hemoglobin Concent 34.2% (32.0-37.0) Red Cell Distribution Width 13.4% (12.3-15.4) Platelet Count 216bil/L (150-400) Neutrophils (%) (Auto) 52.2% (40-74) Lymphocytes (%) (Auto) 34.7% (14-46) Monocytes (%) (Auto) 9.5% (4-12) Eosinophils (%) (Auto) 2.8% (0-5) Basophils (%) (Auto) 0.6% (0-3) Sodium Level 137mEq/L (134-144) Potassium Level 4.2mEq/L (3.5-5.2) Chloride Level 100mEq/L (97-108) Carbon Dioxide Level 23mmol/L (18-29) Blood Urea Nitrogen 14mg/dL (8-27) Creatinine 0.80mg/dL (0.76-1.27) Estimat Glomerular Filtration Rate 97mL/min (>59) Glucose Level 208mg/dL (60-99) Calcium Level 9.1mg/dL (8.5-10.1) Hemoglobin 15.0g/dL (13.8-17.2) Hematocrit 44.1% (41.0-50.0) Activated Partial Thromboplast Time 23.0sec (22.8-33.0) Discharge Medications Discharge Medications Aspirin (Aspirin) 325 Mg Tablet 325 MG PO DAILY (Reported) Atorvastatin Calcium (Atorvastatin Calcium) 40 Mg Tablet 40 MG PO HS Prescribed by: KALE HAND DO Clopidogrel (Clopidogrel) 75 Mg Tablet 75 MG PO DAILY Prescribed by: KALE HAND DO Isosorbide MN ER (Isosorbide MN ER) 60 Mg Tab.er.24h 60 MG PO 0730 Prescribed by: KALE HAND DO Metformin (Metformin) 500 Mg Tablet 500 MG PO BID Prescribed by: KALE HAND DO Metoprolol Tartrate (Metoprolol Tartrate) 25 Mg Tablet 25 MG PO BID Prescribed by: KALE HAND DO Followup Plan Disposition: Returning to assisted living facility, [facility]. Discharge Diet: Heart Healthy Discharge Activity: Limited until seen by PCP Follow-up with PCP in: 1 week Time spent 45 minutes Kale Hand DO April 13, 2017 09:16
--- NOTE | 2017-04-13 10:44 | NUR ---
Social Work: Discharge D: Pt discussed in am rounds. Pt is medically stable for discharge back to [facility]. Per RN, pt's daughter states pt will need a bedside assessment prior to d/c. CAD DESIGN ENGINEER spoke with RN at [facility] who confirmed with their assistant activities director that they do not need to complete a bedside assessment because the pt is I and a caregiver for his . Rn states that the pt's son will be providing transportation. CAD DESIGN ENGINEER met with pt at bedside to confirm discharge plan. Pt is eager to leave and has no concerns about discharge. EMR reviewed, pt has been ambulating I during admission. No sw needs identified. A: Pt who is I at baseline. P: Pt to discharge back to [facility] with no social work needs. Pt's son to transport. JEREMIE Islas
[2017-04-13] MEDS ORDERED: METO25TA6 PO (10:46)
[2017-04-13] MEDS ORDERED: CLOP75TA28 PO (10:46)
[2017-04-13] MEDS ORDERED: ATOR40TA69 PO (10:46)
[2017-04-13] MEDS ORDERED: ISOS60TA2 PO (10:46)
[2017-04-13] MEDS ORDERED: METF500T4 PO (10:48)
--- NOTE | 2017-04-13 10:53 | PCM.DIMED ---
Discharge Instructions Date of Service April 13, 2017 Dates of Hospitalization April 10, 2017 at 12:42 Discharge Diagnosis Discharge Diagnosis 1. NSTEMI 2. Exertional Dyspnea 3. Diabetes Mellitus type II, poorly controlled Diet Heart Healthy, Diabetic Activity Limited until seen by PCP Patient Instructions Return to assisted living facility, [facility]. Follow-up plan Follow up in 1 week with your primary care physician to review new medications, consider further titration of diabetic medications, and for continued medical evaluation and care. Follow-up Provider: [facility] Follow-up with PCP in: 1 week Kale Hand DO April 13, 2017 10:53
--- NOTE | 2017-04-13 11:39 | NUR ---
Discharge Patient continues to deny chest pain/discomfort. VSS. Diabetic diet teaching reviewed with patient. Discharge instructions and medication information printed and reviewed verbally with patient and family. Patient ambulated off unit with all personal belongings accompanied by his daughter and transported back to the [facility] assisted living facility via private vehicle.
== END 2017-04-13 11:10 | disposition home or self-care (01) | DRG 282 ==
LOC: SED 10:34 → PCC 12:42 → INTOOBSV 12:42 → OBSVTOIN 12:42
PROVIDERS: ADMIT Hospitalist; ATTEND Hospitalist
DX: I21.4 Non-ST elevation (NSTEMI) myocardial infarction (principal); E11.65 Type 2 diabetes mellitus with hyperglycemia; I10 Essential (primary) hypertension; E78.5 Hyperlipidemia, unspecified; Z86.73 Personal history of transient ischemic attack (TIA), and cerebral infarction without residual deficits; Z87.891 Personal history of nicotine dependence

== ENCOUNTER 2017-04-23 19:10 | Emergency (ER) | payer MEDICARE ==
[~2017-04-23] VITALS: Ht 177.8 cm; Wt 79.5 kg
[~2017-04-23 19:10] MED LIST: ASPI325T32 PO; ATOR40TA69 PO; CLOP75TA28 PO; ISOS60TA2 PO; METF500T4 PO; METO25TA6 PO
[2017-04-23 19:13] VITALS: BP 121/46; PULSE 63; RESP 15; O2SAT 93
[2017-04-23 19:25] LABS: BASOPHILS % (AUTO) 0.4 % (0-3); EOSINOPHILS % (AUTO) 1.9 % (0-5); MONOCYTES % (AUTO) 7.3 % (4-12); Mean Corpuscular Hemoglobin 31.5 pg (27.0-35.0); Mean Corpuscular Volume 92.4 fL (81-100); NEUTROPHILS % (AUTO) 60.2 % (40-74); Platelet Count 272 bil/L (150-400)
[2017-04-23 19:59] LABS: Magnesium 1.9 mg/dL (1.6-2.6)
[2017-04-23 20:00] LABS: TROPONIN T 0.064 ug/L (0.0-0.011)
--- NOTE | 2017-04-23 20:02 | ED.REPORT ---
HPI-Chest Pain 40 and Over Date of Service April 23, 2017 ED Provider: Dr. Infante Pt is an 87 y/o male w/ a hx of recent NSTEMI, NIDDM, HTN, hyperlipidemia, TIA, presenting to the ED with family c/o intermittent substernal CP with radiation to the jaw onset about 2 weeks ago. The patient states that his pain seems to occur after eating at night, and also in the morning when he walks. He was recently admitted for NSTEMI to [facility] between 04/10/17 - 04/13/17 and was medically treated. He was discharged home with Plavix and aspirin. His chest pain was similar to his usual exertional chest pain at that point. It was recommended that amlodipine be added to his medication regimen but he declined at that time. He is on 25 mg Metoprolol BID. Nursing Notes Stated Complaint: CHEST PAIN Chief Complaint: Chest Pain Nursing Notes Reviewed: Yes Allergies: Coded Allergies: No Known Allergies (Unverified Allergy, Unknown, 04/23/17) Scheduled Aspirin (Aspirin) 325 Mg Tablet 325 MG PO DAILY Atorvastatin Calcium (Atorvastatin Calcium) 40 Mg Tablet 40 MG PO HS Clopidogrel (Clopidogrel) 75 Mg Tablet 75 MG PO DAILY Isosorbide MN ER (Isosorbide MN ER) 60 Mg Tab.er.24h 60 MG PO 0730 Metformin (Metformin) 500 Mg Tablet 500 MG PO BID Metoprolol Tartrate (Metoprolol Tartrate) 25 Mg Tablet 25 MG PO BID General Time Seen by MD: 20:01 Chief Complaint Chest pain Hx Obtained From: Patient, EMS Arrived By: Ambulance Sudden in Onset?: No Onset Occurred: More than a week ago... (2 weeks) Symptom Duration: Intermittent Location: : Substernal Quality: Painful Radiation: : Jaw Severity: Current: No pain currently Severity: Maximum: Moderate Recent Healthcare: Recent doctor visit, Recent testing, Previous diagnosis, Prior workup Similar Sx Previous: Yes Past Medical History Past Medical History Hypertension Hx of TIA (2014) Hyperlipidemia NSTEMI NIDDM CAD Past Surgical History Yes - can't remember Family History Noncontributory Smoking History Former Smoker Social History The patient lives at [facility] with his . Drug Use: Denies drug use Other Social History: Good social support, , Local resident Ambulatory Status Independent Review of Systems Constitutional: Denies: Chills, Fever Respiratory: Denies: Non-productive cough, Shortness of breath Cardiovascular: Reports: Chest pain, Denies: Edema GI: Denies: Abdominal pain, Diarrhea, Nausea, Vomiting Complete sys rev & neg: except as marked. Physical Exam Initial Vital Signs Vital Signs (First) Date Time Temp Pulse Resp B/P Pulse Ox O2 Delivery O2 Flow Rate FiO2 04/23/17 19:13 36.8 63 15 121/46 93 Room Air Initial VS: Reviewed, Vital signs abnormal Head / Eyes: Atraumatic, Normocephalic, PERRL ENT: Mucous membranes moist, Conjunctiva normal, No scleral icterus Neck: Supple, Full range of motion Extremities: Vascular intact, Neuro intact, No swelling, No tenderness Skin: Warm, Dry, No cyanosis Neurologic: Alert, Oriented, Nonfocal Psychiatric: Mood/affect normal, Behavior normal, Normal thought content General/Constitutional: Awake, Alert, No acute distress, Cooperative, Not toxic appearing Respiratory / Chest: Breath sounds = bilat, No respiratory distress, No stridor , No chest tenderness Minimal bibasilar crackles Cardiovascular: Heart rate NL, Regular rhythm, Heart sounds NL, No gallop, No murmurs, No rubs, Cap refill not delayed, Peripheral circulation NL Lower Ext Edema: Positive: Bilateral 1+ Abdomen: Atraumatic, Soft, Non-tender, No guarding, No rebound, No distention, No palpable mass Interpretation & Diagnostics Lab Results Interpretation Result Diagram: 04/23/17190404/23/171904 Test 04/23/17 19:05 White Blood Count 11.8th/mm3 (3.8-10.1) Red Blood Count 4.32mil/mm3 (4.40-5.80) Hemoglobin 13.6g/dL (13.8-17.2) Hematocrit 39.9% (41.0-50.0) Mean Corpuscular Volume 92.4fL (81-100) Mean Corpuscular Hemoglobin 31.5pg (27.0-35.0) Mean Corpuscular Hemoglobin Concent 34.1% (32.0-37.0) Red Cell Distribution Width 13.4% (12.3-15.4) Platelet Count 272bil/L (150-400) Neutrophils (%) (Auto) 60.2% (40-74) Lymphocytes (%) (Auto) 29.9% (14-46) Monocytes (%) (Auto) 7.3% (4-12) Eosinophils (%) (Auto) 1.9% (0-5) Basophils (%) (Auto) 0.4% (0-3) Sodium Level 133mEq/L (134-144) Potassium Level 4.8mEq/L (3.5-5.2) Chloride Level 96mEq/L (97-108) Carbon Dioxide Level 19mmol/L (18-29) Blood Urea Nitrogen 10mg/dL (8-27) Creatinine 0.98mg/dL (0.76-1.27) Estimat Glomerular Filtration Rate 77mL/min (>59) Glucose Level 304mg/dL (60-99) Calcium Level 9.0mg/dL (8.5-10.1) Magnesium Level 1.9mg/dL (1.6-2.6) Total Bilirubin 0.4mg/dL (0.0-1.2) Aspartate Amino Transf (AST/SGOT) 43U/L (0-50) Alanine Aminotransferase (ALT/SGPT) 45U/L (0-44) Alkaline Phosphatase 62U/L (25-160) Troponin T 0.064ug/L (0.0-0.011) Total Protein 6.8g/dL (6.4-8.4) Albumin 3.5g/dL (3.4-5.0) ECG Interpretation ECG Interpretation: Sinus rhythm rate [address] depression V2-V6 and II Similar to EKG 04/10/17 Time: 19:27 Interpreted by: ED physician Normal ECG Interpretation: No acute ischemic changes X-Ray Chest Interpretation Chest Xray Interpretation: IMPRESSION: Acute disease is not seen a semiupright portable chest. Dictated by: Matt Pink M.D. on 04/23/2017 at 21:04 Approved by: Matt Pink M.D. on 04/23/2017 at 21:05 View: Portable, 1 view Interpretation / Wet Read by: Interpret - Radiologist Re-Eval/Medical Decision Source of Hx: Old records Time of Eval: 21:50 Re-Evaluation/Progress Note: Called the PoA and daughter Azul who agreed with the medical management plan from last admission. He now lives at [facility] and can be given all of his medications instead of him picking and choosing them. Time of Eval: 22:06 Re-Evaluation/Progress Note: Pt rechecked. He relates that he does not want to take pills because he doesn't like to take them. I informed the patient that if he wants a better quality of life he should take the medications as prescribed. Informed pt of plan for treatment. Pt understands and agrees with plan for treatment. F/U instructions and RTER warnings given. All questions addressed. Counseled Regarding: Diagnosis, Lab results, Need for follow-up, When/why to return to ED Discharge & Departure Primary Impression: Chest pain Chest pain type: unspecified Qualified Code: R07.9 - Chest pain, unspecified Additional Impression: Angina pectoris Disposition: Home Discharge Condition All VS Reviewed: Yes Condition: Stable Patient Instructions: Chest Pain (ED) Additional Instructions: Your pain and shortness of breath after eating and with walking is due to your heart. This is similar to your recent hospitalization admission for the small heart attack. With your admission, there was a recommendation to add amlodipine 5 mg daily to help with this pain. You were reluctant to start that medication however I would suggest you do so now. You have been giving your first dose this evening and a prescription will be given to be administered with your other medications I am also giving you a prescription for sublingual nitroglycerin. You can use one under your tongue as needed for chest pain, tightness, shortness of breath. If you feel that you are getting worse, please return to the ER. Please follow up [facility] Dr Xavier as scheduled Referrals: Manjinder Xavier Attestation Portions of this note were transcribed by Cruz Alonso. I, Dr. Infante personally performed the history, physical exam and medical decision-making; I reviewed and confirmed the accuracy of the information in the transcribed note. Signed by Lyndon Kyle, 04/23/17 - 2029 copies to: Manjinder Xavier Shawna L MD April 23, 2017 20:02 CRUZ ALONSO April 23, 2017 20:06
--- NOTE | 2017-04-23 21:06 | DRSVH ---
PROCEDURE: X-RAY CHEST ONE VIEW, PORTABLE ([id number]) INDICATIONS: intermittent chest pain x2 weeks TECHNIQUE: One view of the chest was acquired. COMPARISON: [facility], CR, XR CHEST 1VW (PORTABLE), 04/10/2017, 10:50. FINDINGS: Surgical changes and devices: liquid yeast supervisor leads are seen over the chest. Lungs and pleura: No pleural effusions or pneumothorax. Lungs are clear. Mediastinum: Mediastinal contours appear normal. Heart size is normal. Bones and chest wall: No suspicious bony lesions. Overlying soft tissues appear unremarkable. IMPRESSION: Acute disease is not seen a semiupright portable chest. Dictated by: Matt Pink M.D. on 04/23/2017 at 21:04 Approved by: Matt Pink M.D. on 04/23/2017 at 21:05
[2017-04-23 22:39] VITALS: BP 116/55; PULSE 55; RESP 27; O2SAT 96
== END 2017-04-23 22:35 | disposition home or self-care (01) ==
LOC: SED 19:10
DX: I20.9 Angina pectoris, unspecified (principal); I11.9 Hypertensive heart disease without heart failure; I25.10 Atherosclerotic heart disease of native coronary artery without angina pectoris; E78.5 Hyperlipidemia, unspecified; Z86.73 Personal history of transient ischemic attack (TIA), and cerebral infarction without residual deficits; Z79.82 Long term (current) use of aspirin; Z79.84 Long term (current) use of oral hypoglycemic drugs; Z87.891 Personal history of nicotine dependence

== ENCOUNTER 2017-04-24 02:11 | Inpatient (IN) | payer MEDICARE ==
[~2017-04-24] VITALS: Ht 177.8 cm; Wt 78.8 kg
[2017-04-24] VITALS (12 sets, daily range): BP systolic 100–135; BP diastolic 45–77; PULSE 55–87; RESP 18–28; O2SAT 90–97
[2017-04-24] MEDS ORDERED: Nitroglycerin 2% 1 Gm Ointment TOPICAL ONE (02:15)
--- NOTE | 2017-04-24 02:18 | ED.REPORT ---
HPI-Chest Pain 40 and Over Date of Service Apr 24, 2017 ED Provider: Madeline Infante MD The patient was seen in the ED a few hours ago with complaints of chest pain and opted to be discharged home with diagnosis of chest pain and angina pectoris. He has returned via EMS with complaints of increased chest pain which was severe enough to wake him up from sleep. At time of arrival he rates his chest pain at 5/10. His EKG is unchanged. The note from earlier today is pasted below. He was not experiencing significant dyspnea tonight. Pt is an 87 y/o male w/ a hx of recent NSTEMI, NIDDM, HTN, hyperlipidemia, TIA, presenting to the ED with family c/o intermittent substernal CP with radiation to the jaw onset about 2 weeks ago. The patient states that his pain seems to occur after eating at night, and also in the morning when he walks. He was recently admitted for NSTEMI to [facility] between 04/10/17 - 04/13/17 and was medically treated. He was discharged home with Plavix and aspirin. His chest pain was similar to his usual exertional chest pain at that point. It was recommended that amlodipine be added to his medication regimen but he declined at that time. He is on 25 mg Metoprolol BID. CODE STATUS: DNR, DNI Nursing Notes Stated Complaint: CHEST PAIN Chief Complaint: Chest Pain Nursing Notes Reviewed: Yes Allergies: Coded Allergies: No Known Allergies (Unverified Allergy, Unknown, 04/23/17) Scheduled Aspirin (Aspirin) 325 Mg Tablet 325 MG PO DAILY Atorvastatin Calcium (Atorvastatin Calcium) 40 Mg Tablet 40 MG PO HS Clopidogrel (Clopidogrel) 75 Mg Tablet 75 MG PO DAILY Isosorbide MN ER (Isosorbide MN ER) 60 Mg Tab.er.24h 60 MG PO 0730 Metformin (Metformin) 500 Mg Tablet 500 MG PO BID Metoprolol Tartrate (Metoprolol Tartrate) 25 Mg Tablet 25 MG PO BID General Time Seen by MD: 02:14 Chief Complaint Chest pain Hx Obtained From: Patient, EMS Arrived By: Ambulance Sudden in Onset?: Yes Onset Occurred: Just prior to arrival Symptom Duration: Since onset Location: : Substernal Quality: Painful Severity: Current: Pain level 5 out of 10 Severity: Maximum: Severe Recent Healthcare: Recent doctor visit, Recent testing, Previous diagnosis, Prior workup Similar Sx Previous: Yes Past Medical History Past Medical History Hypertension Hx of TIA (2015) Hyperlipidemia NSTEMI NIDDM CAD Past Surgical History Yes - can't remember Family History Noncontributory Smoking History Former Smoker Social History The patient lives at [place] [facility] with his . Drug Use: Denies drug use Other Social History: Good social support, , Local resident Ambulatory Status Independent Review of Systems Constitutional: Denies: Chills, Fever Respiratory: Denies: Non-productive cough, Shortness of breath Cardiovascular: Reports: Chest pain GI: Denies: Abdominal pain, Diarrhea, Nausea, Vomiting Complete sys rev & neg: except as marked. Physical Exam Physical Exam Notes: His exam is unchanged from earlier today Initial Vital Signs Vital Signs (First) Date Time Temp Pulse Resp B/P Pulse Ox O2 Delivery O2 Flow Rate FiO2 04/24/17 02:11 36.7 64 18 135/56 94 Room Air Initial VS: Reviewed Head / Eyes: Atraumatic, Normocephalic, PERRL ENT: Mucous membranes moist, Conjunctiva normal, No scleral icterus Neck: Supple, Full range of motion Extremities: Vascular intact, Neuro intact, No swelling, No tenderness Skin: Warm, Dry, No cyanosis Neurologic: Alert, Oriented, Nonfocal Psychiatric: Mood/affect normal, Behavior normal, Normal thought content General/Constitutional: Awake, Alert, No acute distress, Cooperative, Not toxic appearing Appearance / Presentation: Positive: Pale Respiratory / Chest: Breath sounds NL, Breath sounds = bilat, No respiratory distress, No rales, No rhonchi, No wheezing, No stridor, No chest tenderness Cardiovascular: Heart rate NL, Regular rhythm, Heart sounds NL, No gallop, No murmurs, No rubs, Cap refill not delayed, Peripheral circulation NL Abdomen: Atraumatic, Soft, Non-tender, No guarding, No rebound, No distention, No palpable mass Interpretation & Diagnostics Lab Results Interpretation Test 04/24/17 02:30 Lab Results Interpretation: Repeat troponin is currently pending. Remainder blood work was not repeated at this point. ECG Interpretation ECG Interpretation: Sinus rhythm rate [address] depression in leads I, II, V3-V6 Unchanged from previous EKG taken earlier today Time: 02:20 Interpreted by: ED physician Normal ECG Interpretation: No acute ischemic changes Re-Eval/Medical Decision Med Decision/Clinical Course 87-year-old man with end-stage E medical management 2 weeks ago similar symptoms today again discussion in the ER regarding treatment options decided to try more aggressive medical management and discharge home. Went home he did not really remember the emergency department and continued to complain of the same chest pain did not try any nitroglycerin. Medics were called and his pain was significantly reduced with sublingual nitroglycerin. He did want to be in the hospital. Returns to the emergency department at this point he is pain-free after sublingual nitroglycerin and morphine in route. EKG is again unchanged exam is unremarkable. An inch of nitro paste is placed is given subcutaneous Lovenox 1 mg/kg. At this point will be admitted for medical management of his non-STEMI. At this point he did get 5 mg of amlodipine earlier this evening he is currently on 25 mg of metoprolol by mouth twice a day and 60 mg of Imdur daily for medical management of his coronary artery disease. Dementia remains a continued issue for him and he remains no code and is not interested in aggressive management. Time of Eval: 02:20 Re-Evaluation/Progress Note: Pt rechecked. Informed pt of need for admission. Pt understands and agrees with plan for admission. All questions addressed. Consultation : Consulted With: Hospitalist Call Returned at: 03:10 Real Estate Teacher: Will see patient, Agrees with plan Note: Dr Tan Counseled Regarding: Diagnosis, Lab results, Need for admission Discharge & Departure Primary Impression: Chest pain Chest pain type: unspecified Qualified Code: R07.9 - Chest pain, unspecified Additional Impression: Angina pectoris Disposition: ADMITTED TO HOSPITAL Discharge Condition All VS Reviewed: Yes Condition: Stable Referrals: NOPCP (PCP) [facility] Attestation Portions of this note were transcribed by Cruz Alonso. I, Dr. Infante personally performed the history, physical exam and medical decision-making; I reviewed and confirmed the accuracy of the information in the transcribed note. Signed by Lyndon Kyle, 04/24/17 - 0230 Madeline Infante MD Apr 24, 2017 02:18 CRUZ ALONSO Apr 24, 2017 02:25
[2017-04-24] MEDS ORDERED: Ondansetron 2 mg/mL 2 mL Inj IVPUSH PRN ×2 (03:45→03:50)
[2017-04-24] MEDS ORDERED: Alum-Mag Hydrox-Simeth 30 mL Suspension PO PRN (03:45)
[2017-04-24] MEDS ORDERED: Atropine 1 mg/10 mL (Code) Syringe IVPUSH PRN (03:50)
--- NOTE | 2017-04-24 04:04 | PCM.HPMED ---
Subjective Date of Service Apr 24, 2017 Primary Provider: Admitting Physician: Demetrio Summers MD Primary Care Physician: Damián Attending Physician: Demetrio Summers MD Admit Status: From the Emergency Department Chief Complaint: Chest pain History of Present Illness: This is a 87 year old male with past medical history significant for diabetes mellitus type 2, hypertension, hyperlipidemia, CAD, and CVA who presents with chest pain. He initially came to the emergency department yesterday evening and discharged home. Since the discharge the pain has progressively worsened. The pain is described as a substernal pain with radiation down arms to level of elbow bilaterally. The pain is worse with exertion. The pain has been present for several weeks with exertion but worsened this evening. During EMS transport he received nitroglycerin and morphine with relief of chest pain. He denies any shortness of breath, nausea, vomiting, diarrhea, constipation, or diaphoresis. His most recent admission to [facility] was on 04/10/2017 at which time he was diagnosed with a NSTEMI and desired medical therapy only. He was discharged on Plavix, aspirin, and imdur. He declined amlodipine which was also recommended on discharge. Initial vital signs were temp 36.7c, pulse 64, respiratory rate 18, blood pressure 135/56, and satting at 92% on room air. Laboratory values from yesterday evening included WBC 11.5, hgb 13.6, hct 39.9, and platelets 272. Sodium 133, glucose 104. AST 42, ALT 45. Troponin .064. Repeat troponin .143. Chest x-ray showed no acute cardiopulmonary disease. In the ED the patient was given enoxaparin 80mg and nitroglycerin. Review of Systems: A comprehensive review of systems was conducted with the patient and found to be negative except as above in the History of Present Illness. Allergies Coded Allergies: No Known Allergies (Unverified Allergy, Unknown, 04/23/17) Home Medications aspirin 325 mg tablet,delayed release take 1 tablet by oral route every day atorvastatin 40 mg tablet take 1 tablet by oral route every day at bedtime clopidogrel 75 mg tablet take 1 tablet by oral route every day isosorbide mononitrate ER 60 mg tablet,extended release 24 hr take 1 tablet by oral route every day at 7:30 am metformin 500 mg tablet take 1 tablet by oral route 2 times every day with morning and evening meals metoprolol tartrate 25 mg tablet take 1 tablet by oral route 2 times every day PMH Diabetes mellitus type 2 Hypertension Hyperlipidemia CAD CVA Dementia Surgical History He cannot recall past surgeries. Family History Mom at age 90 of unknown causes. Social History Hx Alcohol Use: Yes (Glass wine per day) Hx Substance Use: No Smoking Status: Former Smoker (Quit 40 years ago.) Additional Information The patient lives at [facility] with his . Exam Vital Signs Vital Sign - Last Date Time Temp Pulse Resp B/P Pulse Ox O2 Delivery O2 Flow Rate FiO2 04/24/17 02:37 65 18 107/45 92 Room Air 04/24/17 02:11 36.7 Exam General: No acute distress, well-developed, well-nourished, appropriately interactive HEENT: Normocephalic, atraumatic. External ears without defect. Pupils equal, round, and reactive to light and accommodation. Anicteric sclerae. Oropharynx free of erythema and cobble stoning with moist mucosa. Neck: Supple with full range of motion. Cardiovascular: Regular rate and rhythm with no murmurs, rubs, or gallops appreciated Pulmonary: Clear to auscultation bilaterally with no crackles, wheezes, or rhonchi. Normal respiratory effort with no use of accessory muscles. Abdomen: Bowel tones present. Soft, nontender, nondistended. No hepatosplenomegaly or masses appreciated. Extremities: No clubbing, cyanosis, edema, or lymphadenopathy appreciated. Skin: Normal temperature, turgor, and texture; no rash, ulcers, or subcutaneous nodules appreciated. Neurological: Cranial nerves grossly intact. Psychiatric: Normal mood and affect Lab and Diagnostics X-Rays, CTs and MRIs Chest x-ray on 04/23/2017: IMPRESSION: Acute disease is not seen a semiupright portable chest. Dictated by: Matt Pink M.D. on 04/23/2017 at 21:04 12-lead ECG Sinus rhythm rate 63, RBBB, LAFB, ST depression in leads I, II, V3-V6 Assessment & Plan NSTEMI, present on admission, ongoing: -Troponin .064. Repeat troponin .143. EKG RBBB, LAFB, ST depression in leads I , II, V3-V6. -Trend Troponins. -Patient given Enoxaparin 80 mg in ED. -Ordered Enoxaparin 80mg BID. -Ticagrelor 180mg one time dose given. -Patient on Aspirin and Plavix which was taken today. -Patient is on Metoprolol tartrate 25mg BID. He missed his evening dose and this has been given. -Patient is on Atorvastatin 40mg. -Consult cardiology in the morning. Diabetes mellitus type 2: -Last A1c 04/10/2017 10.8. -Continue home medication Metformin 1000mg BID. -Humalog medium dose correctional added. Hypertension: -Amlodipine given in ED -Continue home metoprolol tartrate and isosorbie dinitrate. Hyperlipidemia, present on admission: -Continue atorvastatin. For DVT prophylaxis patient is on enoxaparin. Med req is not yet completed and therefore will hold on this for now. Patient is admitted under inpatient status with expected length of stay greater than 2 midnights due to severity of presenting symptoms, risk of adverse event, and complexity of treatment plan. Attending Statement The patient was seen and examined together with Dr. Heller on 04/24 and I agree with the history, exam and plan as outlined in the note above. Robbin Heller DO Apr 24, 2017 04:04 Demetrio Summers MD Apr 24, 2017 04:12
[2017-04-24] MEDS ORDERED: Glucose 40% Oral Gel 15 Gm Tube PO PRN (04:10)
--- NOTE | 2017-04-24 05:05 | NUR ---
Admit to room 3010 @ 04:00 for Non-stemi. A&Ox3, non-slip socks on for safety, oriented to room POC on whiteboard. Pain 0/10 afebrile BP 111/61 Pulse 58 sat'ing 94% on 5L O2. Forgetful concerning recent medical hx and states "I don't believe I am diabetic". Refusing SCD's.
--- NOTE | 2017-04-24 05:10 | NUR ---
Med Rec Patient is a poor historian unsure if any of the medications he started taking a few weeks ago come from a pharmacy or assisted living residence @ [facility] in [facility]. [facility] Addendum: 04/24/17 at 0609 by MARLYN BERNARDO RN Pharmacy info from [facility] selena ID [facility]. Faxed for medication list.
--- NOTE | 2017-04-24 06:43 | NUR ---
Chest Pain on ambulation to bathroom @06:07, administered 1mg IV Morphine and S.L. 0.4 Nitro BP 129/67 P 87. 92% O2 sat on 5L N.C. After 5 minutes resting quietly.
[2017-04-24] MEDS: Insulin LISPRO 300 Unit/3 mL Inj SUBQ SCH ×4 (08:00→22:00)
--- NOTE | 2017-04-24 10:45 | PCM.CONPAL ---
Date of Service Apr 24, 2017 Date of Hospital Admission: Apr 24, 2017 at 02:58 Date of Palliative Consult: Apr 24, 2017 Requesting Provider: Kale Hand DO Reason Palliative Care Consult: Goals of Care Discussion Reason for Consultation Palliative Care received verbal order from Dr Hand 04/24/17 to assist with goals of care. Patient was admitted 04/24/17. He resides at [facility]. Kimberly (step-dtr/POA) & Jefferson Lorenzana ([facility]) [phone], , Allen Sanchez (son) [phone], , Hospital Unit @time of consult: Medical/Pediatric Care (room 3010) Palliative Care Recommendation Summary of palliative recommendations: Symptom management (Pain/other): Chest pain, active at time of my interview today. Pt receiving q 5 min IV morphine 1mg-2mg. 1. Start long-acting morphine sulfate 15mg po BID 2. Consider LIBRARY SERVICES ASSISTANT for pt to use (temporarily until acute anginal pain resolves ) with morphine LIBRARY SERVICES ASSISTANT set at 1.0 mg q 10min for sx relief. Max dose in 1 hour set at 6mg. (Pt required 6mg in last hour to resolve chest pain). Discussed with Dr. Hand, who agrees with plan. 3. Start Senna-S 1 po BID scheduled to prevent opiate induced constipation. DPOA/Advanced Directives/POLST: 1. Code Status: DNR/DNI 2. Step-daughter Kimberly is patient's HCPOA. 04/24: Palliative Care Conference with Family: Kimberly and her Jefferson are at bedside for discussion today. Pt in too much pain to discuss LT goals. We all agree that pain relief is first priority for him, and we will discuss hospice as a possible option tomorrow. Family/emotional support: Step-dtr Kimberly is POA for both patient and his (her mother): Kimberly (step -dtr/POA) cell: [phone] Her Jefferson Lorenzana ([facility]RI[facility]) cell: [phone], Their home: Kimberly and Jefferson Sanchez (son) [phone], , Spiritual support: not discussed today Patient Goals: 1. Patient wants to be told the truth about his/her illness, even if it is unpleasant. 2. Patient would like to be told prognosis when it can be predicted, to better guide treatment decisions. 3. Patient would choose quality of life over quantity of life, and defines quality as (to be discussed). 4. Patient would request that comfort care take priority over cognitive/mental confusion. Additional Medical Diagnoses with primary management by Hospitalist team include : Problems: Resuscitation Status Resuscitation Status: DNR/DNI:Do Not Resuscitate/Intubate Limited Interventions: Medications and IV Fluid POLST Updates/Changes Previous POLST?: No . Pain: Severe Pt History History of Present Illness This is a 87 year old male with past medical history significant for diabetes mellitus type 2, hypertension, hyperlipidemia, CAD, and CVA who presents with chest pain. He initially came to the emergency department yesterday evening and discharged home. Since the discharge the pain has progressively worsened. The pain is described as a substernal pain with radiation down arms to level of elbow bilaterally. The pain is worse with exertion. The pain has been present for several weeks with exertion but worsened this evening. During EMS transport he received nitroglycerin and morphine with relief of chest pain. He denies any shortness of breath, nausea, vomiting, diarrhea, constipation, or diaphoresis. His most recent admission to [facility] was on 04/10/2017 at which time he was diagnosed with a NSTEMI and desired medical therapy only. He was discharged on Plavix, aspirin, and imdur. He declined amlodipine which was also recommended on discharge. Initial vital signs were temp 36.7c, pulse 64, respiratory rate 18, blood pressure 135/56, and satting at 92% on room air. Laboratory values from yesterday evening included WBC 11.5, hgb 13.6, hct 39.9, and platelets 272. Sodium 133, glucose 104. AST 42, ALT 45. Troponin .064. Repeat troponin .143. Chest x-ray showed no acute cardiopulmonary disease. In the ED the patient was given enoxaparin 80mg and nitroglycerin. Past Medical History Significant PMH Noted: Diabetes mellitus type 2 Hypertension Hyperlipidemia TIA in 2014 Noncritical (51%) bilateral carotid artery disease Aortic stenosis with preserved LV function CAD CVA RBB Dementia Surgical History He cannot recall past surgeries. Family History Mom at age 90 of unknown causes. Social History Hx Alcohol Use: Yes (Glass wine per day) Hx Substance Use: No Smoking Status: Former Smoker (Quit 40 years ago.) Lives with his , who is moderately demented, [place] [facility] Medications Current Medications: Current Medications Al Hydrox/Mg Hydrox/Simethicone 30 ml Q6 PRN PO; Start 04/24/17 at 03:45 Ondansetron HCl Dose range: 4 mg to 8 mg Q4H PRN IVPUSH; Start 04/24/17 at 03:45 Acetaminophen 975 mg Q6H PRN PO; Start 04/24/17 at 03:45 Enoxaparin Sodium 80 mg 06,18 SUBQ; Start 04/24/17 at 18:00 Metoprolol Tartrate 25 mg Q12 PO Last administered on 04/24/17 08:18; Admin Dose 25 MG; Start 04/24/17 at 03:50 Ondansetron HCl 4-8 mg prn nausea Q4 PRN IVPUSH; Start 04/24/17 at 03:50 Acetaminophen 325 mg Q6 PRN PO; Start 04/24/17 at 03:50 Nitroglycerin 0.4 mg Q5MIN PRN SL Last administered on 04/24/17 06:06; Admin Dose 0.4 MG; Start 04/24/17 at 03:50 Morphine Sulfate 1-5 mg prn pain not relie... Q5M PRN IVPUSH Last administered on 04/24/17 06:01; Admin Dose 1 MG; Start 04/24/17 at 03:50 Atropine Sulfate 0.5 mg Q5MIN PRN IVPUSH; Start 04/24/17 at 03:50 Insulin Human Lispro [facility] SUBQ; Start 04/24/17 at 08:00 Scheduled Aspirin (Aspirin) 325 Mg Tablet 325 MG PO DAILY Atorvastatin Calcium (Atorvastatin Calcium) 40 Mg Tablet 40 MG PO HS Clopidogrel (Clopidogrel) 75 Mg Tablet 75 MG PO DAILY Isosorbide MN ER (Isosorbide MN ER) 60 Mg Tab.er.24h 60 MG PO 0730 Metformin (Metformin) 500 Mg Tablet 500 MG PO BID Metoprolol Tartrate (Metoprolol Tartrate) 25 Mg Tablet 25 MG PO BID Objective Findings Exam Vital Sign - Last Date Time Temp Pulse Resp B/P Pulse Ox O2 Delivery O2 Flow Rate FiO2 04/24/17 10:22 Supplement Oxygen 04/24/17 09:20 36.6 55 18 100/58 97 04/24/17 06:07 5.00 Intake and Output 04/23/17 04/23/17 04/24/17 Cumulative From/Thru 15:00 23:00 07:00 04/24/17 02:11 - 04/24/17 05:24 Intake Total 0 ml 0 ml Output Total 650 ml 650 ml Balance -650 ml -650 ml Intake Oral 0 ml 0 ml Output Urine Total 650 ml 650 ml # Bowel Movements 0 0 Lab/Diagnostics Lab and Imaging results reviewed in detail in EMR. Time spent Total time 70 minutes; >50% face to face with patient and/or family, providing counselling regarding plans and recommendations, and in care coordination with his/her medical teams. Sosa Diaz MD Apr 24, 2017 10:45 Sosa Diaz MD Apr 24, 2017 10:45
--- NOTE | 2017-04-24 10:53 | NUR ---
chest pain pt complains of chest pain. Dr Hand was in room during episode, asks that pt be given 1mg of morphine hold the nitro. pt reports that his CP is feeling better but is concerned about his new cough Addendum: 04/24/17 at 1115 by SHERYL HARGROVE RN chest pain pt's chest pain returned just after leaving the room. Dr Guillory asks that pt be given another dose of morphine and a long acting oral morphine be given as well. pt is on 4 L O2-pulse ox-92%
--- NOTE | 2017-04-24 11:01 | NUR ---
Palliative Care Palliative Care received verbal order from Dr Hand 04/24/17 to assist with goals of care. Patient was admitted 04/24/17. He resides at [facility]. Kimberly (dtr/POA) & Jefferson Lorenzana [phone], , Allen Sanchez (son) [phone], , Palliative Care to follow. Teresa Galvez
[2017-04-24] MEDS: Morphine ER 15 mg (MS Contin) Tablet PO SCH ×2 (11:10→21:16)
[2017-04-24] MEDS: Dextrose 5% 500 ML IV SCH (12:46)
[2017-04-24] MEDS: Morphine PCA 1 mg/mL 30 mL Inj IV PRN (12:47)
[2017-04-24] MEDS: Senna-Docusate 8.6-50 mg Tablet PO SCH (21:16)
[2017-04-25] VITALS (15 sets, daily range): BP systolic 100–138; BP diastolic 58–76; PULSE 55–87; RESP 18–24; O2SAT 90–96
--- NOTE | 2017-04-25 02:20 | NUR ---
Pain / O2 Saturation / Mentation Patient accidentally hit PUBLIC HEALTH DIETITIAN button once otherwise no c/o pain or administration of Morphine intentionally from [employer] HEALTH DIETITIAN pump. Non-compliant with O2 NC or oxymask. Removes of own volition once alone in room or before staff leaving room. Added humidification to O2 for comfort. O2 sat's 80-92% without oxygen, when wearing 4.5L stays between 92-94%. Upon waking and jumping out of bed setting off alarm, patient confused and wondering where was. Reoriented quickly to hospital room and stated: "What time is it?" and "I guess I will go back to sleep" then immediately headed toward bathroom almost pulling out IV before pump could be unplugged from wall.
--- NOTE | 2017-04-25 07:39 | PCM.PNMED ---
Subjective Date of Service Apr 25, 2017 Subjective Pt endorses a resolution of chest pain this morning, but he is very frustrated he has "been in this dump forever". He believed he had been here more than a week, and now that pain is gone feels no one is doing anything for him. With further conversation patient calmed, understood it would take a little more time , states he would very much like to return to his 's side and not keep coming back to hospital. Exam Vital Signs Vital Sign - Last Date Time Temp Pulse Resp B/P Pulse Ox O2 Delivery O2 Flow Rate FiO2 04/25/17 06:34 24 93 04/25/17 05:29 87 04/25/17 05:15 36.8 124/62 OxyMask 04/25/17 00:05 4.50 Intake and Output 04/24/17 04/24/17 04/25/17 Cumulative From/Thru 15:00 23:00 07:00 04/24/17 02:11 - 04/25/17 06:35 Intake Total 354 ml 189 ml 543 ml Output Total 350 ml 1000 ml Balance 4 ml 189 ml -457 ml Intake Oral 300 ml 300 ml IV Total 54 ml 189 ml 243 ml Output Urine Total 350 ml 1000 ml # Bowel Movements 0 0 General: Alert, Oriented X3, Cooperative, Other Mouth: Mucous Membr Moist/[place] Chest & Lungs: Clear to auscultation & percussion Cardiovascular: Regular Rate/Rhythm Abdomen: Non-tender, Non-distended Extremities: Warm, No heel ulcers present, Other (trace edema B/L lower extremities) Neurological: Other (demented, but oriented to location and person. otherwise nonfocal examination. ) IVs and Medications Medications Reviewed: Medications were reviewed in detail Lab and Diagnostics X-Rays, CTs and MRIs Chest x-ray on 04/23/2017: IMPRESSION: Acute disease is not seen a semiupright portable chest. Dictated by: Matt Pink M.D. on 04/23/2017 at 21:04 12-lead ECG Sinus rhythm rate 63, RBBB, LAFB, ST depression in leads I, II, V3-V6 Assessment & Plan NSTEMI, present on admission, ongoing: -Troponin .064. Repeat troponin .143. then stabilized at .144. EKG RBBB, LAFB, ST depression in leads I, II, V3-V6. -Patient given Enoxaparin 80 mg in ED. -Ordered Enoxaparin 80mg BID. -Ticagrelor 180mg one time dose given. -Patient on Aspirin and Plavix which was taken today. -Patient is on Metoprolol tartrate 25mg BID. He missed his evening dose and this has been given. -Patient is on Atorvastatin 40mg. - Amlodipine added in addition to previousl rx'd medications for optimal medical management of CAD with unstable angina. - GIven pt's overall medical condition, and wishes to avoid invasive intervention, further discussion regarding hospice care vs continued medical management will be discussed later today. - Pt again declines any possibility of more invasive studies or intervention such as cardiac cath. Diabetes mellitus type 2: -Last A1c 04/10/2017 10.8. -Continue home medication Metformin 1000mg BID. -Humalog medium dose correctional added. Hypertension: -Amlodipine given in ED, and continued daily at this time. -Continue home metoprolol tartrate and isosorbie dinitrate. Hyperlipidemia, present on admission: -Continue atorvastatin. For DVT prophylaxis patient is on enoxaparin. Patient is admitted under inpatient status with expected length of stay greater than 2 midnights due to severity of presenting symptoms, risk of adverse event, and complexity of treatment plan. Pain Evaluation: Adequate Pain Control VTE Mechanical Devices: Venous Foot Pump Resuscitation Status: DNR/DNI:Do Not Resuscitate/Intubate Limited Interventions: Medications and IV Fluid Time spent 20 minutes Kale Hand DO Apr 25, 2017 07:39
[2017-04-25 08:09] LABS: BASOPHILS % (AUTO) 0.2 % (0-3); EOSINOPHILS % (AUTO) 0.9 % (0-5); MONOCYTES % (AUTO) 7.4 % (4-12); Mean Corpuscular Hemoglobin 31.1 pg (27.0-35.0); Mean Corpuscular Volume 92.7 fL (81-100); NEUTROPHILS % (AUTO) 69.1 % (40-74); Platelet Count 299 bil/L (150-400)
[2017-04-25] MEDS ORDERED: Morphine 2 mg/mL 5 mL Oral Solution PO PRN (08:35)
--- NOTE | 2017-04-25 08:38 | NUR ---
CP Pt amb to BR. Upon return, c/o CP described as radiating across chest. EMT INTERMEDIATE button pushed by pt and SL Nitro given which resolved CP. Manual BP 138/62, HR 84. Pt remains on 4.5L via OxyMask, 02 mid-high 90's. Per TELE: at 0730 4 beat of V-tach, no activity otherwise. Per MD, no EKG as pt is refusing procedures.
[2017-04-25] MEDS: Morphine ER 15 mg (MS Contin) Tablet PO SCH ×2 (08:53→20:05)
[2017-04-25] MEDS: Isosorbide Mononitrate 60 mg ER24 Tablet PO SCH (09:05)
[2017-04-25] MEDS: Senna-Docusate 8.6-50 mg Tablet PO SCH ×2 (09:05→20:04)
[2017-04-25] MEDS: Insulin LISPRO 300 Unit/3 mL Inj SUBQ SCH ×4 (09:06→20:08)
--- NOTE | 2017-04-25 09:37 | PCM.PALLBR ---
Palliative Care Recommendation Summary of palliative recommendations: Symptom management (Pain/other): Chest pain, quiescent overnight but with new onset this a.m. with exertion 1. Continue long-acting morphine sulfate 15mg po BID 2. Continue CONTRACT MODELER for pt to use (temporarily until acute anginal pain resolves ) with morphine CONTRACT MODELER set at 1.0 mg q 10min for sx relief. Max dose in 1 hour set at 6mg. 3. Continue Senna-S 1 po BID scheduled to prevent opiate induced constipation. 4. Add liquid morphine 5mg po q 3 hour prn breakthrough pain (this is intended for home use. We will try to get him off CONTRACT MODELER and using prn oral morphine later today once, his angina resolves. DPOA/Advanced Directives/POLST: 1. Code Status: DNR/DNI 2. Step-daughter Kimberly is patient's HCPOA. 04/25: on meeting with Step-dtr Kimberly and her Jefferson, they are alarmed at episode of chest pain Mr. Arevalo had this morning. They talked to him about re -considering the idea of a cardiac intervention to see if it can be tried. They want to speak with relay shop supervisor and hospitalist about this. We are deferring any discussion of hospice now as they seem to be more interested in cardiac catheterization to see if any blockage can be relieved. Dr. Diaz discussed family decision with Dr. Hand, who will re-consult cardiology. 04/24: Palliative Care Conference with Family: Kimberly and her Jefferson are at bedside for discussion today. Pt in too much pain to discuss LT goals. We all agree that pain relief is first priority for him, and we will discuss hospice as a possible option tomorrow. Family/emotional support: Step-dtr Kimberly is POA for both patient and his (her mother): Kimberly (step -dtr/POA) cell: [phone] Her Jefferson Lorenzana (DARRIUS) cell: [phone], Their home: Kimberly and Jefferson Sanchez (son) [phone], , Spiritual support: not discussed today Patient Goals: 1. Patient wants to be told the truth about his/her illness, even if it is unpleasant. 2. Patient would like to be told prognosis when it can be predicted, to better guide treatment decisions. 3. Patient would choose quality of life over quantity of life, and defines quality as (to be discussed). 4. Patient would request that comfort care take priority over cognitive/mental confusion. Additional Medical Diagnoses with primary management by Hospitalist team include : Problems: Resuscitation Status Resuscitation Status: DNR/DNI:Do Not Resuscitate/Intubate Limited Interventions: Medications and IV Fluid POLST Updates/Changes Previous POLST?: No Total time 35 minutes; >50% face to face with patient and/or family, providing counselling regarding plans and recommendations, and in care coordination with his/her medical teams. I also spent an additional [ ] minutes counseling for advanced care planning with the patient/the patients family/the surrogate decision maker. Palliative Brief Note Date of Service Apr 25, 2017 . Patient Identification This is a 87 year old male with past medical history significant for diabetes mellitus type 2, hypertension, hyperlipidemia, CAD, and CVA who presents with chest pain. He initially came to the emergency department yesterday evening and discharged home. Since the discharge the pain has progressively worsened. The pain is described as a substernal pain with radiation down arms to level of elbow bilaterally. The pain is worse with exertion. The pain has been present for several weeks with exertion but worsened the evening prior to admission. He was admitted 04/24/17 in early a.m. His most recent admission to [facility] was on 04/10/2017 at which time he was diagnosed with a NSTEMI and desired medical therapy only. He was discharged on Plavix, aspirin, and imdur. He declined amlodipine which was also recommended on discharge. Hospital Course: He was again diagnosed with an NSTEMI and again has requested only medical and symptom management. Troponin .064. Repeat troponin .143. Chest x-ray showed no acute cardiopulmonary disease. In the ED the patient was given enoxaparin 80mg and nitroglycerin. He had several episodes of chest pain treated with morphine boluses on the floor 04/24 and subsequently was put on a CONTRACT MODELER morphine pump, however he only used CONTRACT MODELER 3 times overnight. This morning, initially he reported no pain, but then had severe exertional chest pain when he attempted to walk to BR with assistance. He is currently using the CONTRACT MODELER for PRN boluses of morphine (1mg). General: currently denies pain, sitting up in bed, eating breakfast. Slightly confused. Says, "I expect to go home today." HEENT: Normocephalic, atraumatic. External ears without defect. PERRL. EOMI Anicteric sclerae. Cardiovascular: Regular rate and rhythm with no murmurs, rubs, or gallops appreciated Pulmonary: Clear to auscultation bilaterally with no crackles, wheezes, or rhonchi. No use of accessory muscles. Abdomen: Bowel tones present. Soft, nontender, nondistended. Extremities: No clubbing, cyanosis, edema. Skin: no rash, Neurological: Cranial nerves grossly intact. Psychiatric: Normal mood and affect Sosa Diaz MD Apr 25, 2017 09:37
[2017-04-25] MEDS: Dextrose 5% 500 ML IV SCH (12:14)
--- NOTE | 2017-04-25 18:28 | NUR ---
Activity/cardiac Pt amb to BR x3 this shift, denies any further CP/discomfort. No reports from TELE for any cardiac abnormalities. GUEST SERVICES ASSOCIATE remains at bedside, pt has only used x1 for CP episode this AM. Remains on 4.5L via Oxymask, denies any SOB. Currently resting comfortably, bed in lowest, locked position and call light in reach.
[2017-04-26] VITALS (15 sets, daily range): BP systolic 100–138; BP diastolic 55–87; PULSE 68–93; RESP 16–24; O2SAT 90–94
[2017-04-26] MEDS: Senna-Docusate 8.6-50 mg Tablet PO SCH ×2 (10:00→20:06)
[2017-04-26] MEDS: Isosorbide Mononitrate 60 mg ER24 Tablet PO SCH (10:00)
[2017-04-26] MEDS: Insulin LISPRO 300 Unit/3 mL Inj SUBQ SCH ×4 (10:01→20:07)
[2017-04-26] MEDS: Morphine ER 15 mg (MS Contin) Tablet PO SCH ×2 (10:07→20:06)
--- NOTE | 2017-04-26 14:28 | PCM.PNMED ---
Subjective Date of Service Apr 26, 2017 Subjective Patient continues to experience significant chest pain with exertion as small as walking to bathroom. It is somewhat benefited by oxygen but really only relieved by rest. Becoming more amenable to possibility of intervention given severity of condition and complete disabling effect of his severely unstable angina. He has no other acute complaints aside from this very significant condition, appetite is still reasonable, he has no other pain to complain of aside from chest pain. Shortness of breath is greatly improved with oxygen therapy. Denies any fever chills or sweats. Exam Vital Signs Vital Sign - Last Date Time Temp Pulse Resp B/P Pulse Ox O2 Delivery O2 Flow Rate FiO2 04/26/17 11:00 81 04/26/17 10:11 36.6 24 124/73 93 OxyMask .00 Intake and Output 04/25/17 04/25/17 04/26/17 Cumulative From/Thru 15:00 23:00 07:00 04/24/17 02:11 - 04/26/17 04:05 Intake Total 525 ml 732 ml 200 ml 2000 ml Output Total 1000 ml 1275 ml 3275 ml Balance -475 ml -543 ml 200 ml -1275 ml Intake Oral 525 ml 600 ml 200 ml 1625 ml IV Total 132 ml 375 ml Output Urine Total 1000 ml 1275 ml 3275 ml # Voids 3 3 # Bowel Movements 0 0 Exam General: Alert, Oriented X3, Cooperative, Other Mouth: Mucous Membr Moist/[place] Chest & Lungs: Clear to auscultation & percussion. Oxygen mask in place. Cardiovascular: Regular Rate/Rhythm Abdomen: Non-tender, Non-distended Extremities: Warm, No heel ulcers present Neurological: Mildly demented, but oriented to location and person. otherwise nonfocal examination. IVs and Medications Medications Reviewed: Medications were reviewed in detail Lab and Diagnostics Result Diagram: 04/25/17 0757 04/25/17 0757 X-Rays, CTs and MRIs Chest x-ray on 04/23/2017: IMPRESSION: Acute disease is not seen a semiupright portable chest. Dictated by: Matt Pink M.D. on 04/23/2017 at 21:04 12-lead ECG Sinus rhythm rate 63, RBBB, LAFB, ST depression in leads I, II, V3-V6 Assessment & Plan NSTEMI, present on admission, ongoing: -Troponin .064. Repeat troponin .143. then stabilized at .144. EKG RBBB, LAFB, ST depression in leads I, II, V3-V6. -Patient given Enoxaparin 80 mg in ED. -Ordered Enoxaparin 80mg BID. -Ticagrelor 180mg one time dose given. -Patient on Aspirin and Plavix which was taken today. -Patient is on Metoprolol tartrate 25mg BID. He missed his evening dose and this has been given. -Patient is on Atorvastatin 40mg. - Amlodipine added in addition to previousl rx'd medications for optimal medical management of CAD with unstable angina. -- Given failure of medical management to control symptoms, patient's desire to resume ambulation and more active life cardiology was consulted for further discussion of possible intervention, specifically stenting, to relieve exertional angina. - Given the patient's current state is not acceptable for him, is not off of the quality of life deems necessary, invasive procedure which may provide a cure or at least improve his angina appears the most reasonable course at this time. Though it poses significant risk, the benefits appear to outweigh the risks considering alternative [place] which patient does not find meaningful. - Patient is discussed this with Dr. Oakes who plans to move forward with catheterization and possible cardiac stenting as soon as Friday. - Supportive care and wash awaiting will be pursued until that time Diabetes mellitus type 2: -Last A1c 04/10/2017 10.8. -Continue home medication Metformin 1000mg BID. -Humalog medium dose correctional added. Hypertension: -Amlodipine continued daily at this time in addition to metoprolol tartrate and isosorbie dinitrate. Hyperlipidemia, present on admission: -Continue atorvastatin. For DVT prophylaxis patient is on enoxaparin. Patient is admitted under inpatient status with expected length of stay greater than 2 midnights due to severity of presenting symptoms, risk of adverse event, and complexity of treatment plan. Pain Evaluation: Pain not Controlled VTE Mechanical Devices: Venous Foot Pump Resuscitation Status: DNR/DNI:Do Not Resuscitate/Intubate Limited Interventions: Medications and IV Fluid Time spent 25 minutes Kale Hand DO Apr 26, 2017 14:28
[2017-04-26 14:35] LABS: APPEARANCE,URINE CLEAR (CLEAR,HAZY); COLOR,URINE YELLOW (YELLOW); PH,URINE 6.5 (5.0-8.0)
[2017-04-26 14:36] LABS: OCCULT BLOOD,URINE NEGATIVE (NEGATIVE); UROBILINOGEN,URINE NORMAL (NORMAL)
--- NOTE | 2017-04-26 15:48 | NUR ---
Social Work Note: Initial Assessment Data& Assessment: EMR reviewed. SW met with pt at bedside to discuss discharge planning, SW role explained. SW phone number provided on pt whiteboard. Yair Arevalo is a 87 year old male admitted on 04/24/2017 for NON STEMI. Pt has Medicare and AARP supplemental insurance coverage. Pt does not have a PCP and declined SW offer to help establish him with a PCP in the community or schedule an appointment for him at the residency clinic. Pt lives at [facility] where he is independent with all ADL's and does not use any DME. Pt helps caregive for his who he says is currently on Hospice. Pt family helps out with meals and chores around the home. Pt does not have HH or SNF hx. Pt does not have LTC insurance or VA benefits. Pt did accept DPOA/Advance Directive paperwork to review and complete when possible. ALEXANDER confirmed with Teresa from [facility] that pt does not require a bedside assessment prior to return. Per Palliative care MD note, pt and pt family are thinking about pt transitioning to Hospice. Pt explained that he was still thinking about it. With pt permission, SW contacted pt daughter Kimberly ([phone]) who has been participating in goals of care conversations with Palliative care and plan of care conversations with MD. Pt daughter explained that a front office assistant met with pt today and they plan to complete a stent procedure on Friday in efforts to decrease his symptoms and hopefully reduce the amount of pain he is in. If pt does not improve after the procedure, then the plan is to proceed with Hospice Services. Pt daughter denies any needs at this time. Pt denies any needs at this time. SW to continue to follow for pt medical progression, MD orders and if any other needs arise. Plan: Anticipated discharge back to [facility] via POV with our without Hospice services. SW to follow up with pt and pt family after pt is recovered from procedure taking place on Friday to check in about discharge plan and to r/o Hospice. Pt and pt family denies any other needs at this time. SW to continue to follow for pt medical progression, MD orders and if any other needs arise. JEREMIE Traylor Addendum: 04/26/17 at 1601 by CR LICEA Amended: Links added.
--- NOTE | 2017-04-26 16:01 | NUR ---
KIRK Signed JEREMIE Traylor
--- NOTE | 2017-04-26 19:19 | NUR ---
Pain and Comfort: Patient had chest pain this morning 8 on 1-10 scale. The pain was relived with one NTG SL and 1 mg of VISUALIZER morphine. Patient also recieved his Morphine ER , the combination of the meds provided comfort for the patient for the remainder of the day. Patient reported No Pain the remainder of the day.
--- NOTE | 2017-04-26 19:30 | CONS ---
[address] [address] CONSULTATION REPORT PATIENT: ALEXANDRA GUTIERREZ : 1930 MR#: [id number] ADMIT: 04/24/2017 JOB ID: [id number] DATE OF SERVICE: 04/26/2017 CHIEF COMPLAINT: I was asked by the hospitalist team to consult on this patient given persistence of chest pain despite medical management. HISTORY OF PRESENT ILLNESS: The patient is an 87-year-old man with diabetes mellitus, hypertension, hyperlipidemia. He also has a history of a stroke in the distant past for which no clear etiology was ever found. He was admitted in March of this year with chest discomfort. His family tells me that he has always been very active, walking up as far as 3 miles without any problems at all. Maybe about 4-6 weeks ago, he started noticing some mild discomfort with walking but this has progressed now to the point that he is unable to do any activities at all. Getting out of bed and walking to the bathroom causes chest pain. He was initially seen by Cardiology. He had an echocardiogram performed that showed mild concentric hypertrophy. No obvious wall motion abnormalities. Right ventricular systolic function was normal. Mild to moderate aortic stenosis. When he was seen by Cardiology before there were concerns about risks of cardiac catheterization given his age. There are also concerns about compliance with medications. Now he is at a [facility] facility where they give him his medications regularly and his family feels that he is more compliant with medications. They insist that he would be compliant if he had to take medications. He was admitted again because despite addition of medicines to help with his anginal symptoms, his anginal symptoms have not been well controlled. He had to be treated with nitroglycerin and he is also using SOFTWARE SUPPORT REPRESENTATIVE system to delivery pain medicine. Because of his persistence symptoms not adequately responsive to medications, Palliative Care was consulted. However, they discussed with him a Cardiology consult to elucidate if cardiac catheterization might be helpful. Today the patient is insistent that he wants to get a solution to his symptoms. He does not feel he can keep coming back to the hospital with chest pain, and unfortunately, despite being compliant with the medications prescribed, he is not doing well. He denies any orthopnea, PND, lower extremity edema, palpitations, presyncope, syncope. PAST MEDICAL HISTORY/PROBLEM LIST: 1. Diabetes mellitus. 2. Hypertension. 3. Hyperlipidemia. 4. Coronary disease. 5. History of stroke. 6. Some dementia. SOCIAL HISTORY: Tobacco: He is a former smoker. One glass of wine a day, no more. FAMILY HISTORY: No early coronary disease. REVIEW OF SYSTEMS: Overall health: No fevers, night sweats or weight loss. GI: He has no problems with ulcers, no problems with blood in stool. No bleeding hemorrhoids. : No dysuria, no hematuria. Pulmonary: No known lung disease. No asthma. Endocrine: No heat or cold intolerance. Heme: No easy bruising or bleeding. Neuro: History of strokes in the past with no clear etiology discovered. He does not seem to have much residual deficit. Some dementia. ENT: No difficultly swallowing. No sore throat. No significant hearing decrease. Ophtho: No acute vision changes. Psych: No acute issues. Musculoskeletal: No significant joint pain and no consideration of surgeries for joint issues. Derm: No acute rashes or skin breakdown. All other review of systems on a 12-point review of system are negative. PHYSICAL EXAMINATION: Blood pressure is 120/66: His heart rate is 86. He is afebrile and sats are 93% on 5 L. General: In no acute distress. Speaking in full sentences without apparent shortness of breath. Head and neck exam: Normocephalic, atraumatic. Vascular: No carotid bruits appreciated. Heart exam: Regular rate and rhythm. I do not appreciate obvious murmurs, gallops or rubs. Lungs sound clear anteriorly. Back: No CVA tenderness to palpation. Abdomen soft, nontender. Extremities are warm. No appreciable edema, 1+ distal pulses appreciated. Skin without breakdown appreciated. Neuro: Alert and interactive. Gait is not tested. Psych: Somewhat anxious but perhaps appropriate given the situation. Skin: No breakdown appreciated. ENT: Mucous membranes moist. Optho: Vision grossly intact. LABORATORIES: Yesterday, showed white count 13.5 and H/H 13.6 and 40.6, platelets of 299,000. Chemistry shows sodium 131, potassium 4, chloride 94, creatinine 1.01. BUN 13. Troponins in the 0.14 range. IMAGING: Shows a chest x-ray from April 23. No acute disease. CURRENT MEDICATIONS: Include: 1. Metformin 500 b.i.d. 2. Plavix 75 daily. 3. Aspirin 325 daily. 4. Metoprolol 25 b.i.d. 5. Amlodipine 5 daily. 6. Insulin Lispro. 7. Morphine sulfate p.r.n. 8. Imdur 60 mg daily. 9. Enoxaparin b.i.d. (therapeutic dose). 10. Atorvastatin 40 q.h.s. EKG shows sinus rhythm, but there are some ST depressions seen in the lateral leads. IMPRESSION: Mr. Gutierrez has been very functional up until recently, able to walk up to two or three miles without problems. He noticed some mild chest discomfort initially but this has become progressive. He has been admitted before with elevated troponins and conservative management was selected. However, despite being compliant with his medications, he continues to have chest discomfort and is quite limited. PLAN/RECOMMENDATION: 1. I spoke with the family about this and said that the reason there has been extreme caution about taking him to the pharmaceutical laboratory technician was again because of his age and because of the risks. I described the risks, risks being risk of bleeding, risk of stroke, risk of , risk of arrhythmias, risks of contrast issues causing kidney issues. I explained the potential findings which could be extensively calcified vessels not amenable to stenting, possibly only amenable to bypass. I told him that if the findings were consistent with best served by bypass, conversation could be had with Surgery and in fact he might be accepted given otherwise that he is reasonably healthy. I also discussed if we found a focal stenosis that was amenable to stenting this could be done with a stent, either regular stent, bare metal or a drug-eluting stent. I discussed the fact that compliance with Plavix and aspirin is mandatory to avoid stent closure and if the vessel is either small or looks quite calcified he would do better with a drug-eluting stent as opposed to a bare metal stent. They assure me that he would be compliant with medications if the stent was placed. 2. I think they are leaning toward diagnostic cardiac catheterization. He is chest-pain free at this time with the current medications that he is receiving which includes nitroglycerin, as well as some morphine. I have again discussed that he is higher risk for cardiac catheterization but would be willing to take him and take pictures to see what is present and again the possibility of stenting if there was a lesion that was readily amenable to stenting. I would not opt to do it this weekend. I would opt to do it at the beginning of next week. Should we proceed to cardiac catheterization, we will need to hold his Lovenox on the evening before his cardiac catheterization. Alternatively, you could hold it on the day before and place him on a heparin drip. I spent 40 minutes reviewing the patient's old records, reviewing his echocardiogram findings, looking at his studies, examining him and talking with the family. KEVIN
[2017-04-27] VITALS (13 sets, daily range): BP systolic 97–135; BP diastolic 55–75; PULSE 67–96; RESP 18–26; O2SAT 90–95
[2017-04-27 05:25] LABS: Mean Corpuscular Hemoglobin 30.9 pg (27.0-35.0); Mean Corpuscular Volume 90.9 fL (81-100)
--- NOTE | 2017-04-27 05:40 | NUR ---
Comfort/activity/oxygen Patient denies pain. patient moaned throughout the night. upon assessment patient denied pain and states "I am just talking to somebody." morphine MEDICAL LABORATORY ASSISTANT in place. IVF infusing TKO. patient reported arm pain over night, pain was relieved by MEDICAL LABORATORY ASSISTANT. Patient has been up to the bathroom SBA. patient is unsteady on his feet. he will not allow anyone to come in to the bathroom with him even though he has been educated on falls, patient continues to refuse and states "get out". bed alarm in place. non-skid socks at all times with ambulating. hourly rounding, anticipating needs. Patients 02 low 80's patient denied SOB and refused to put on oxygen. patient took off CPOX states "I don't want that damn thing." despite education patient continued to refuse CPOX. patient spot checked 02 90-95% on 5L via oximask. will continue to monitor.
[2017-04-27] MEDS: Senna-Docusate 8.6-50 mg Tablet PO SCH ×2 (08:47→22:30)
[2017-04-27] MEDS: Insulin LISPRO 300 Unit/3 mL Inj SUBQ SCH ×4 (08:47→22:00)
[2017-04-27] MEDS: Isosorbide Mononitrate 60 mg ER24 Tablet PO SCH (08:47)
[2017-04-27] MEDS: Morphine ER 15 mg (MS Contin) Tablet PO SCH ×2 (08:48→22:31)
--- NOTE | 2017-04-27 11:55 | PCM.PNMED ---
Subjective Date of Service Apr 27, 2017 Subjective Patient is clinically stable but still experiencing severe chest pain, which worsens with activity. 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 He is now looking forward to undergoing cardiac catheterization hopefully will provide him some lasting relief. Exam Vital Signs Vital Sign - Last Date Time Temp Pulse Resp B/P Pulse Ox O2 Delivery O2 Flow Rate FiO2 04/27/17 10:32 67 04/27/17 09:39 36.6 26 99/56 95 OxyMask 5.00 04/26/17 15:06 92 Intake and Output 04/26/17 04/26/17 04/27/17 Cumulative From/Thru 15:00 23:00 07:00 04/24/17 02:11 - 04/27/17 06:16 Intake Total 400 ml 400 ml 2800 ml Output Total 3275 ml Balance 400 ml 400 ml -475 ml Intake Oral 400 ml 400 ml 2425 ml IV Total 375 ml Output Urine Total 3275 ml # Voids 3 5 11 # Bowel Movements 0 0 Exam General: Alert, Oriented X3, Cooperative, Other Mouth: Mucous Membranes Moist/[place] Chest & Lungs: Clear to auscultation & percussion. Oxygen mask in place. Cardiovascular: Regular Rate/Rhythm Abdomen: Non-tender, Non-distended Extremities: Warm, No heel ulcers present Neurological: Mildly demented, but oriented to location and person. otherwise nonfocal examination. IVs and Medications Medications Reviewed: Medications were reviewed in detail Lab and Diagnostics Result Diagram: 04/27/17 0505 04/27/17 0505 X-Rays, CTs and MRIs Chest x-ray on 04/23/2017: IMPRESSION: Acute disease is not seen a semiupright portable chest. Dictated by: Matt Pink M.D. on 04/23/2017 at 21:04 12-lead ECG Sinus rhythm rate 63, RBBB, LAFB, ST depression in leads I, II, V3-V6 Assessment & Plan NSTEMI, present on admission, ongoing: -Troponin .064. Repeat troponin .143. then stabilized at .144. EKG RBBB, LAFB, ST depression in leads I, II, V3-V6. -Patient given Enoxaparin 80 mg in ED. -Ordered Enoxaparin 80mg BID. -Ticagrelor 180mg one time dose given. -Patient on Aspirin and Plavix which was taken today. -Patient is on Metoprolol tartrate 25mg BID. He missed his evening dose and this has been given. -Patient is on Atorvastatin 40mg. - Amlodipine added in addition to previously rx'd medications for optimal medical management of CAD with unstable angina. -- Given failure of medical management to control symptoms, patient's desire to resume ambulation and more active life cardiology was consulted for further discussion of possible intervention, specifically stenting, to relieve exertional angina. - Given the patient's current state is not acceptable for him, is not off of the quality of life deems necessary, invasive procedure which may provide a cure or at least improve his angina appears the most reasonable course at this time. Though it poses significant risk, the benefits appear to outweigh the risks considering alternative [place] which patient does not find meaningful. - Patient is discussed this with Dr. Oakes who plans to move forward with catheterization and possible cardiac stenting Friday. Diabetes mellitus type 2: -Last A1c 04/10/2017 10.8. -Continue home medication Metformin 1000mg BID. -Humalog medium dose correctional added. Hypertension: -Amlodipine continued daily at this time in addition to metoprolol tartrate and isosorbie dinitrate. Hyperlipidemia, present on admission: -Continue atorvastatin. For DVT prophylaxis patient is on enoxaparin. Patient is admitted under inpatient status with expected length of stay greater than 2 midnights due to severity of presenting symptoms, risk of adverse event, and complexity of treatment plan. Pain Evaluation: Pain not Controlled VTE Mechanical Devices: Venous Foot Pump Resuscitation Status: DNR/DNI:Do Not Resuscitate/Intubate Limited Interventions: Medications and IV Fluid Time spent 25 minutes Kale Hand DO Apr 27, 2017 11:55
--- NOTE | 2017-04-27 17:33 | NUR ---
Pain ?activity: Patient is very impulsive,,,he was found ambulating down the marie . Bed alarm was placed on patients bed and he was encouraged to use his call light for safety . Patient received NTG x2 for chest pain of 8 on 1/10 scale. The NTG provided relief and patient used his EXHIBIT BUILDER button also that provided relief and allowed patient to sleep.
--- NOTE | 2017-04-27 17:41 | NUR ---
Test in AM: Patient is going to have Cardiac Cath tomorrow per MD. Patient is to be NPO after midnight for the test and per Marketing Technology Coordinator he is going to be started on Cardiac heparin drip at 2000 tonight. Will pass information to the NOC shift.
--- NOTE | 2017-04-27 18:10 | PROG NOTE ---
[address] [address] PROGRESS NOTE PATIENT: ALEXANDRA GUTIERREZ : 1930 MR#: [id number] ADMIT: 04/24/2017 JOB ID: [id number] DATE: 04/27/2017 CHIEF COMPLAINT: Patient denies any chest pain. He is upset because he thought that he was going to get cardiac catheterization today. I spoke with his daughter and they are taking a break today. PHYSICAL EXAMINATION: Blood pressure is 120/68. Sats are 90% on 5 L. He is afebrile. General: In no acute distress. LABORATORIES: Show white count 17.6, H and H 14.9 and 43.8, platelets 361,000. Chemistry shows sodium 135, potassium 4.5, chloride and bicarb 95 and 20 respectively. BUN and creatinine 30 and 1.02. Glucose 206. CURRENT MEDICATIONS: Include: 1. Metformin 500 b.i.d. 2. Aspirin 325 daily. 3. Amlodipine 5 daily. 4. Metoprolol 25 b.i.d. 5. Imdur 60. 6. Plavix 75 daily. 7. Heparin drip. IMPRESSION: 1. The patient has a [id number] myocardial infarction. We have discussed the risks and benefits of cardiac catheterization. He would like to proceed. I have called the daughter and asked her to meet with me tomorrow morning so that we can further assessment the patient and make sure that he is appropriate to go to cardiac catheterization laboratory and discussed consent 2. He does have an elevated white count and there is no clear infectious cause. This may be possibly related to the myocardial infarction itself. It has been mildly elevated since April 25 as well. PLAN: 1. Stop Lovenox. Change to heparin drip. 2. N.p.o. after midnight. 3. Hold metformin tomorrow morning prior to his procedure. [facility]
[2017-04-27] MEDS ORDERED: Heparin 25K Unit/500mL 0.45 NS 25,000 UNIT in IV Premix 1 EACH IV SCH (20:00)
--- NOTE | 2017-04-27 22:00 | NUR ---
Chest Pain Patient c/o chest pain 09/02. patient requesting nitro. SOB observed. patients oxymask on the floor. patient states " I thought I had that on". Replaced 02 on patient 5L via oxymask. Stat EKG obtained showing acute infarct. vital stable Patient given sublingual nitrox1. 5 minutes later patient reports improvement. patient reports no pain. 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 still appears slightly SOB. patient denies SOB. spot check 02 93% on 5L RR 23. Patient sitting upright in bed. Informed MD about EKG changes. no new orders.
[2017-04-27] MEDS: Morphine PCA 1 mg/mL 30 mL Inj IV PRN (22:19)
[2017-04-28] VITALS (11 sets, daily range): BP systolic 93–153; BP diastolic 56–88; PULSE 88–114; RESP 20–28; O2SAT 91–96
--- NOTE | 2017-04-28 00:20 | NUR ---
Shortness of breath/activity/nose bleed Patient SOB at rest. refused to use urinal at bedside. insisted on walking to the bathroom. refused to wear oxygen to the bathroom. Assisted patient to the bathroom. he refused to leave the door open despite education on falls. checked back in on patient, patient states "im not doing good." observed patient in respiratory distress placed patient on oxymask 6L. vitals stable. notified charge nurse of patient change in condition. patient denies chest pain, denies any pain. declined PARAFFINER at this time. patient began vomiting orange substance. had bloody nose that stopped with pressure. urine appears dark colin/red. MD notified of patient changes. no new orders continue to monitor. continue heparin gtt.
--- NOTE | 2017-04-28 01:00 | NUR ---
Rapid response Patient continued to have respiratory distress at rest. 99 rapid response called. at 103 RT placed non-rebreather on patient. CPOX in place 02 low 80% RR rapid 28. audible crackle/rales heard throughout lungs change from beginning of shift when faint crackles were heard. IVF NS 10ml/hr discontinued. 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 MD in at 010. ABG attempted by RT. new order for Bipap. patient transferred down to CCU room 2014. report given to Lexi MEADE. patient refused HS insulin blood sugar was 217. Addendum: 04/28/17 at 0639 by RAY SALCEDO RN Patient requested that his be notified. unable to get 's name and number through medical records. Passed on to RN during report.
[2017-04-28 01:28] LABS: BASOPHILS % (AUTO) 0.2 % (0-3); EOSINOPHILS % (AUTO) 0.2 % (0-5); MONOCYTES % (AUTO) 10.8 % (4-12); Mean Corpuscular Hemoglobin 31.4 pg (27.0-35.0); Mean Corpuscular Volume 91.6 fL (81-100); NEUTROPHILS % (AUTO) 70.1 % (40-74); Platelet Count 379 bil/L (150-400)
--- NOTE | 2017-04-28 01:30 | NUR ---
Transfer into CCU/respiratory/skin Pt arrived in CCU around 0130. A&Ox3, denies any CP, dizziness. Admits to SOB while at rest and exertion, denies N&V. TELE SR with PVCs, BP WNL, no elevated temp. Pt put on BIPAP, but quickly decided he didnt not care for it, and kept taking the mask off and stating "I can't wear it, I just can't breathe with it on". Notified RT and MD, got order for high flow NC, which patient tolerates better but is constantly fussing with it and taking it out every couple minutes. Says "this doesn't help, I still cannot breathe very well". Encouraged pt to push LENS MOLD SETTER morphine button as well as 1mg morphine boluses given per protocol. Pt still denies chest pain. RR in the high 20s, low 30s, sats 88-94% depending on how much pt takes NC out. Lactic acid came back 6.5, order for NS fluid at 100ml/hr held until next lactic level checked due to possible fluid overload per MD. Frequent rounding and reminding pt to keep high flow cannula in. Two nonblanchable areas on bilateral buttocks noticed upon assessment and mepilex put on as well as order for wound care consult entered.
--- NOTE | 2017-04-28 01:32 | ABG ---
DateTimeAnalyzed 01:26:00 -_ pH ____7.354 - 7.350 7.450 pCO2 ___29.6__ -mmHg 35.0 45.0 pO2 ___98.3__ -mmHg 69.0 116 HCO3- ___16.0__ -mmol/L 22.0 26.0 ABE ___-7.9__ -mmol/L -2.0 2.0 tHb ___13.9__ -g/dL O2Hb ___95.3__ -% COHb ____0.9__ -% MetHb ____0.7__ -% sO2 ___96.9__ -% 25.0 FIO2 __100.0__ -% Drawn By blf - Date/Time Notified____ 01:31:00 -_ Spontaneous_RR ___22.0__ -b/min Liter_Flow ___15.0__ -L/min Oxygen Device 1 NON RE-RANJEET - Notified By blf - Notified Whom ___Dr. Fuimaono - B 762 -mmHg tO2 ___18.7__ -Vol% OrderingPhysicianInitials mf - Magdaleno test _Positive -
[2017-04-28 01:45] LABS: INR 1.01 ratio
[2017-04-28] MEDS: 0.9% Sodium Chloride 1,000 ML IV SCH ×3 (02:10→22:10)
[2017-04-28] MEDS ORDERED: levoFLOXacin Inj 750 MG in IV Premix 1 EACH IV SCH (02:30)
[2017-04-28 04:23] LABS: BASOPHILS % (AUTO) 0.2 % (0-3); EOSINOPHILS % (AUTO) 0.1 % (0-5); MONOCYTES % (AUTO) 7.9 % (4-12); Mean Corpuscular Hemoglobin 31.2 pg (27.0-35.0); Mean Corpuscular Volume 92.5 fL (81-100); NEUTROPHILS % (AUTO) 75.4 % (40-74); Platelet Count 338 bil/L (150-400)
--- NOTE | 2017-04-28 05:29 | NUR ---
Agitation/BG Pt very agitated and tried to get out of bed stating he wanted to walk into bathroom. He kept pulling off his O2 and desating, so MD called and got order for 1mg ativan with good effect. Pt now calm, RASS score -1, RR in the mid 20s, O2 low 90s. Pt's BG high, but pt refusing insulin. Still alert and oriented, able to make decisions.
--- NOTE | 2017-04-28 06:57 | PCM.PNMED ---
Subjective Date of Service Apr 28, 2017 Subjective Rapid response called as the patient developed acute respiratory distress. ABG and CXR ordered Assessment. Acute Respiratory Failure. Place on BIPAP and transfer to second floor Lactic acidosis due to tissue hypoxia Possible Pneumonia. start Levaquin. MRSA screen Demetrio Summers MD Apr 28, 2017 06:57
[2017-04-28] MEDS: Isosorbide Mononitrate 60 mg ER24 Tablet PO SCH (07:30)
[2017-04-28] MEDS: Insulin LISPRO 300 Unit/3 mL Inj SUBQ SCH ×2 (07:49→11:52)
[2017-04-28] MEDS: Morphine ER 15 mg (MS Contin) Tablet PO SCH ×2 (08:17→11:45)
[2017-04-28] MEDS: Senna-Docusate 8.6-50 mg Tablet PO SCH (08:18)
--- NOTE | 2017-04-28 08:34 | DRSVH ---
PROCEDURE: X-RAY CHEST ONE VIEW, PORTABLE ([id number]) INDICATIONS: sob TECHNIQUE: One view of the chest was acquired. COMPARISON: [facility], CR, XR CHEST 1VW (PORTABLE), 04/23/2017, 19:26. FINDINGS: Surgical changes and devices: None. Lungs and pleura: Perihilar and basilar airspace opacities are present. Small pleural effusions. No pneumothorax. Mediastinum: Mediastinal contours appear normal. Heart size is normal. Bones and chest wall: No suspicious bony lesions. Overlying soft tissues appear unremarkable. IMPRESSION: Perihilar and bibasilar airspace opacities likely related to multifocal bilateral pneumon ia, although pulmonary edema must also be considered. Dictated by: Aleks Lerma [facility] Interpreted: Rishi Zavala MD on 04/28/2017 at 8:32 Transcribed by: ROBERT on 04/28/2017 at 8:34 Approved by: Rigo Zavala M.D. on 04/28/2017 at 8:39
[2017-04-28] MEDS ORDERED: Furosemide 10 mg/mL 4 mL Inj IVPUSH ONE (09:15)
--- NOTE | 2017-04-28 09:34 | ABG ---
DateTimeAnalyzed 09:28:00 -_ pH ____7.401 - 7.350 7.450 pCO2 ___33.3__ -mmHg 35.0 45.0 pO2 ___79.1__ -mmHg 69.0 116 HCO3- ___20.3__ -mmol/L 22.0 26.0 ABE ___-3.2__ -mmol/L -2.0 2.0 tHb ___13.9__ -g/dL O2Hb ___94.1__ -% COHb ____0.9__ -% MetHb ____0.8__ -% sO2 ___95.7__ -% 25.0 FIO2 __100.0__ -% Drawn By gj - Date/Time Notified____ 09:33:00 -_ Spontaneous_RR ___20.0__ -b/min Liter_Flow ___30.0__ -L/min Oxygen Device 1 HIGH FLOW - Notified By gj - Notified Whom _LANDRETH - B 762 -mmHg tO2 ___18.4__ -Vol% Magdaleno test _Positive -
--- NOTE | 2017-04-28 09:45 | PROG NOTE ---
[address] [address] PROGRESS NOTE PATIENT: ALEXANDRA GUTIERREZ : 1930 MR#: [id number] ADMIT: 04/24/2017 JOB ID: [id number] DATE: 04/28/2017 SUBJECTIVE: The patient was moved last night to the coronary care unit because of acute respiratory distress with prominent lactic acidosis. Chest x-ray was interpreted as possible multifocal pneumonia, but this is in the setting of significant progressive ischemic symptoms and markedly elevated BNP. The patient has been afebrile and has not been coughing up any sputum, and his x-ray to me looks more like acute pulmonary edema. The patient was given Ativan for sedation because of confusion related to his underlying dementia and, despite the fact that this was given 5 hours ago, he remains fairly markedly sedated. CLINICAL EXAMINATION: Shows an elderly, 87-year-old male, with his head elevated about 45 degrees with nasal prongs and O2 saturation now in the lower 90s. He is in a sinus rhythm at a rate of 80 beats per minute, and his blood pressure has been in the 90-110 systolic range. He is moderately obtunded and does not respond to verbal or tactile stimulus at this point. His respiratory rate looks normal. His color is good. He is not diaphoretic. Observation of his jugular venous pulse suggests that his central venous pressure is not markedly elevated. His cardiac auscultation is notable for distant heart tones. S2 is somewhat prominent. I do not hear an obvious ventricular gallop. The patient has a fairly soft aortic systolic murmur at the left upper sternal border. Distal extremities appear reasonably warm and well perfused without significant edema, clubbing or cyanosis. LABORATORY DATA: As notable for lactic acid at 4 o'clock this morning of 6.5, improved after three hours to 2.4. BNP is markedly elevated at 16,000. His procalcitonin is also elevated at 0.19. He is moderately hyponatremic, and his CO2 level was quite low at 13. Blood sugar was high at 383. Arterial blood gas shows moderate metabolic acidosis. EKG does not demonstrate any acute changes. There are some chronic lateral ST depressions and mild ST-segment changes anteriorly noted as well. These date back to his hospitalization in March and do not show any obvious significant changes. His troponin has not been repeated since admission. IMPRESSION: The patient likely has acute pulmonary edema related to his severe underlying ischemic heart disease. I am going to give him a dose of intravenous furosemide at this point in time. I am also concerned about his obtundation, and a repeat blood gas will be obtained to make sure that his CO2 is not inordinately elevated following his narcotic administration and benzodiazepine dose. A repeat echocardiogram will be useful to estimate intracardiac pressures and re-evaluate for regional wall motion abnormalities. Finally, repeated discussions will be necessary with the family to determine whether or not we should proceed with intervention. Given his age, confusion and dementia, consideration could certainly be given to hospice care as well. His diagnostic procedure could be challenging given his confusion and ability to cooperate, and will need to await evaluation of his clinical course over the next day or two regarding whether or not this represents a pneumonia or acute pulmonary edema, or perhaps both. We will continue to follow closely.
--- NOTE | 2017-04-28 10:29 | PCM.PALLBR ---
Palliative Care Recommendation Summary of palliative recommendations: Symptom management (Pain/other): Patient transitioned to comfort care today after discussion with family. 1. Starting morphine drip and titrating down HFNC oxygen (currently on 100%) per consent of family. DPOA/Advanced Directives/POLST: 1. Code Status: DNR/DNI 2. Step-daughter Kimberly is patient's HCPOA. 04/28: After Dr. Rosales counseled family on pt's deteriorating heart function, Dr. Diaz met with family at bedside. Patient transitioned to comfort care today after discussion with family. Dr. Diaz counseled family that the patient may be moved to another room outside of CCU, depending on CCU needs. They understand. Prognosis: poor. Pt unlikely to live very long as HFNC oxygen decreased per RT and ICU team. Anticipate hours to 1-2 days. 04/25: on meeting with Step-dtsera Harris and her Jefferson, they are alarmed at episode of chest pain Mr. Arevalo had this morning. They talked to him about re -considering the idea of a cardiac intervention to see if it can be tried. They want to speak with poultry buyer and hospitalist about this. We are deferring any discussion of hospice now as they seem to be more interested in cardiac catheterization to see if any blockage can be relieved. Dr. Diaz discussed family decision with Dr. Hand, who will re-consult cardiology. 04/24: Palliative Care Conference with Family: Kimberly and her Jefferson are at bedside for discussion today. Pt in too much pain to discuss LT goals. We all agree that pain relief is first priority for him, and we will discuss hospice as a possible option tomorrow. Family/emotional support: Step-dtr Kimberly is POA for both patient and his (her mother): Kimberly (step -dtr/POA) cell: [phone] Her Jefferson Lorenzana (DARRIUS) cell: [phone], Their home: [phone] Kimberly and Jefferson Sanchez (son) [phone], , Spiritual support: not discussed today Family Goals: allow pt to a natural from his coronary disease. Keep him comfortable in the meantime. Problems: Resuscitation Status Resuscitation Status: DNR/DNI:Do Not Resuscitate/Intubate Limited Interventions: Medications and IV Fluid POLST Updates/Changes Previous POLST?: No . Advanced Care Planning Address: Comfort care Pain: Moderate Symptom management: Anxiety Total time 65 minutes; >50% face to face with patient and/or family, providing counselling regarding plans and recommendations, and in care coordination with his medical teams. Attending Statement Dr. Diaz was physically present and available to resident physician Dr. Chavez for the interview with family, discussion on comfort care and comfort order set management. I agree with documentation in Dr. Chavez's note above. Palliative Brief Note Date of Service Apr 28, 2017 . Rounded on patient today. Prior to visiting, the records in the EMR were reviewed in detail. Also discussed patient with bedside nurse. Patient is somnolent this morning. Overnight he was in acute respiratory distress requiring transfer to the CCU and placement on high flow oxygen. There is question whether this is developing pneumonia versus pulmonary edema in the setting of his myocardiac ischemia. He continues to be on high flow oxygen at time of visit. He is somnolent and not responsive, believed to be a result of receiving benzodiazepine earlier today. Cardiac catheterization was anticipated for today; however, given the recent development of his respiratory failure this has been postponed until the patient is more stable. Echocardiogram performed today shows diffuse wall motion abnormalities that are new compared to his previous echocardiogram in March 2017. Dr. Rosales or cardiology discussed these findings with the patient's family who collectively decided to transition the patient to comfort care. Patient will be started on a morphine drip and the high flow oxygen will be weaned down. Exam: General: Frail elderly gentleman lying in bed on high flow oxygen; No acute distress HEENT: EOMI, No scleral icterus; Nasal prongs in place Cardiac: Distant heart sounds but regular; Soft systolic murmur Lungs: Occasional crackle but otherwise clear bilaterally Abdomen: Bowel tones present, Soft, Nontender Neuro: Unable to assess as patient is somnolent Labs reviewed in detail Echo 04/28/17: The left ventricle is normal in size. The ejection fraction is estimated to be 30-35%. Mid to distal septal, inferior inferolateral hypokinesis, apical hypokinesis, lateral wall appears to move the best. WMA isnew since last exam 03/2017 There is moderate mitral regurgitation. The aortic valve is mildly calcified. There is mild to moderate tricuspid regurgitation. The right ventricular systolic pressure is estimated at 53 mmHg assuming a right atrial pressure of 8 mm Hg. Procedure: A two-dimensional transthoracic echocardiogram with color flow and Doppler was performed. The study quality was technically adequate. Comparison is made with the echocardiogram of 04/10/17. The heart rate ranged between 83-92 bpm during the study. Left Ventricle: The left ventricle is normal in size. There is normal left ventricular wall thickness. The ejection fraction is estimated to be 30-35%. Mid to distal septal, inferior inferolateral hypokinesis, apical hypokinesis, lateral wall appears to move the best. WMA is new since last exam 03/2017 Jose Chavez DO Apr 28, 2017 10:29 Sosa Diaz MD Apr 28, 2017 16:38
--- NOTE | 2017-04-28 12:11 | DRSVH ---
[facility] [address] [place] [address] Echocardiogram Report Name: ALEXANDRA GUTIERREZ Study Date: 04/28/2017 Height: 70 in Hospital Exam Location: [facility] Weight: 174 lb Gender: Male BSA: 2.0 m2 : 1930 Age: 87 yrs BP: 98/56 mmHg Reason For Study: Acute pulmonary edema Ordering Physician: Performed By: Frandy Heard Interpretation Summary The left ventricle is normal in size. The ejection fraction is estimated to be 30-35%. Mid to distal septal, inferior inferolateral hypokinesis, apical hypokinesis, lateral wall appears to move the best. WMA isnew since last exam 03/2017 There is moderate mitral regurgitation. The aortic valve is mildly calcified. There is mild to moderate tricuspid regurgitation. The right ventricular systolic pressure is estimated at 53 mmHg assuming a right atrial pressure of 8 mm Hg. Procedure: A two-dimensional transthoracic echocardiogram with color flow and Doppler was performed. The study quality was technically adequate. Comparison is made with the echocardiogram of 04/10/17. The heart rate ranged between 83-92 bpm during the study. Left Ventricle: The left ventricle is normal in size. There is normal left ventricular wall thickness. The ejection fraction is estimated to be 30-35%. Mid to distal septal, inferior inferolateral hypokinesis, apical hypokinesis, lateral wall appears to move the best. WMA isnew since last exam 03/2017. Assessment of diastolic parameters indicates a restrictive filling pattern of the left ventricle consistent with significantly elevated filling pressures. Right Ventricle: The right ventricle is normal size. Right ventricular systolic function is moderately reduced. Atria: Both atria are normal in size. The interatrial septum is intact with no evidence for an atrial septal defect. Mitral Valve: The mitral valve leaflets appear to open well. There is mild mitral annular calcification. There is moderate mitral regurgitation. Aortic Valve: The aortic valve is mildly calcified. The aortic valve mean gradient is 12 mmHg. The peak aortic velocity is 2.2 m/sec. No aortic regurgitation is present. Tricuspid Valve: The tricuspid valve is not well visualized, but is grossly normal. There is mild to moderate tricuspid regurgitation. The right ventricular systolic pressure is estimated at 53 mmHg assuming a right atrial pressure of 8 mm Hg. Pulmonic Valve: The pulmonic valve is not well visualized. There is a trace or physiologic amount of pulmonic regurgitation. Great Vessels: The aortic root is normal size. The dimensions of the ascending aorta are normal. The pulmonary artery is not well visualized, but is probably normal size. The IVC is of normal diameter and collapses less than 50% with a sniff. This suggests a right atrial pressure of 8 mm Hg. Pericardium/ Pleura There is no pericardial effusion. MMode/2D Measurements & Calculations LVIDd: 4.9 cm RA long axis LVOT diam LVIDs: 4.3 cm LA A2 area: 17.1 cm FS: 10.7 % LA A4 area: 18.4 cm RA area Ao root diam EPSS: 0.76 cm LA length (vol): 5.1 cm IVSd: 1.0 cm LA vol: 52.2 ml : 15.5 cm asc Aorta LVPWd: 1.0 cm LA vol index RA vol: 42.5 mlDiam: 3.0 cm RA : 21.6 mm2 IVC diam: 2.1 cm LV dorsey. diameter/BSA LV sys. diameter/BSA TAPSE: 1.7 cm (cm/m^2): 2.5 (cm/m^2): 2.2 Doppler Measurements & Calculations Ao V2 max: 221.3 cm/secMV E max sawyer MV E/A: 2.0 TR max sawyer Ao max P.6 mmHg : 116.5 cm/sec Med Peak E' Sawyer : 334.9 cm/sec Ao mean P.9 mmHg MV A max sawyer TR max PG LVOT Max Sawyer : 58.6 cm/sec E/E' med: 44.3 : 44.9 mmHg : 65.2 cm/sec Lat Peak E' Sawyer PA V2 max : 75.0 cm/sec LAMIN(I,D): 0.80 cm E/E' lat: 52.7 PA mean PG sev ratio: 0.28 E/e' average : 1.2 mmHg MV dec time: 0.14 sec Ao V2 mean LV V1 max PG PA V2 mean : 165.4 cm/sec : 49.6 cm/sec Ao V2 VTI: 41.2 cmLV V1 VTI PA pr(Accel) : 11.5 cm : 43.7 mmHg LAMIN(V,D): 0.84 cm2 LAMIN indexed to BSA (cm^2/m^2): 0.40 Electronically signed by: Rubens Shaw on Reading Physician:04/28/2017 12:10 PM
--- NOTE | 2017-04-28 12:56 | NUR ---
P: Respiratory Distress I: Pt on high flow with sats 90% this am. Lasix 40 mg IV given. Ruiz placed for accurate output. High flow 100% and 50Liters with sats improved to 94%, VSS. NSR with IVCD. Heparin gtt at 1100 units per hour with next PTT 1830. Turned Q 2 hours. Decub on both buttocks and wound care here and mepilex applied. BUS ESCORT morphine. Pt very somnolent this am, but is more awake this afternoon and able to take medications and use BUS ESCORT Morphine with encouragement. Family at bedside and updated on pt's condition and plan of care. SCD's on. Blood sugars elevated with sliding scale coverage given. E: Stable S: Restraints on for pt safety. Frequent rounding.
[2017-04-28] MEDS ORDERED: Haloperidol 5 mg/mL Inj IM PRN (13:50)
--- NOTE | 2017-04-28 14:09 | PCM.PNMED ---
Subjective Date of Service Apr 28, 2017 Subjective Patient seen and examined at bedside / He was agitated, short of breath and transferred to PCU overnight . He is quite lethargic . I am unable to interview him to to AMS No fever, no chills Exam Vital Signs Vital Sign - Last Date Time Temp Pulse Resp B/P Pulse Ox O2 Delivery O2 Flow Rate FiO2 04/28/17 12:39 21 95 04/28/17 12:39 36.6 98 116/60 High flow 100 04/28/17 09:15 50 Intake and Output 04/27/17 04/27/17 04/28/17 Cumulative From/Thru 15:00 23:00 07:00 04/24/17 02:11 - 04/28/17 04:00 Intake Total 596 ml 3396 ml Output Total 3275 ml Balance 596 ml 121 ml Intake Oral 596 ml 3021 ml IV Total 375 ml Output Urine Total 3275 ml # Voids 2 13 # Bowel Movements 0 0 Exam General: Ill appearing. NAD , lethargic HEENT : JARED. Sclerae is anicteric Mouth: Mucous Membranes Moist/[place] Chest : Normal respiratory efforts. No deformity Lungs: Scattered crackles , no wheezing . Cardiovascular: Regular Rate/Rhythm, no gallop Abdomen: Non-tender, Non-distended Extremities: Warm, No heel ulcers present Neurological: Lethargic . Pt moves all extremities IVs and Medications Medications Reviewed: Medications were reviewed in detail Lab and Diagnostics Result Diagram: 04/28/17 0415 04/28/17 0415 X-Rays, CTs and MRIs Chest x-ray on 04/23/2017: IMPRESSION: Acute disease is not seen a semiupright portable chest. Dictated by: Matt Pink M.D. on 04/23/2017 at 21:04 12-lead ECG Sinus rhythm rate 63, RBBB, LAFB, ST depression in leads I, II, V3-V6 Assessment & Plan 1. NSTEMI, present on admission 2. Acute systolic Herat Failure 3. Acute encephalopathy : Likely due to benzodiazepine . 4. Type II diabetes 5. Hpertension 6. Hyperlipidemia This is carlos sick elderly male transferred overnight with SOB, agitation and acute systolic failure. He was admitted 3 days ago with NSTEMI but refused intervention at that time , though this is a complicated matter given his advanced age and co-morbidities Continue heparin drip for NSTEMI On ASA, Plavix, Metoprolol and Atorvastatin New symptoms are due to acute heart failure due to [place] On diuretics. Fluid restriction , I/O charting Cardiology consult and recommendation noted. Discussed with palliative care about consultation and possible hospice . Meeting to be held with family Avoid Benzo for agitation. Start Low dose of Haldol ( 0.5 mg Q6H prn) instead . Obtain ABG and ammonia level . Hold Metformin. Diabetic diet and sliding scale insulin with coverage Intervention per cardiology , of course if patient and family wants to proceed. He previously refused VTE Mechanical Devices: Intermittant Pneumatic CD Resuscitation Status: DNR/DNI:Do Not Resuscitate/Intubate Limited Interventions: Medications and IV Fluid Time spent 35 minutes Saul Waldrop MD Apr 28, 2017 14:09
[2017-04-28] MEDS ORDERED: Haloperidol 5 mg/mL Inj IV PRN (14:14)
[2017-04-28] MEDS ORDERED: Morphine 100 mg/100 mL NS 100 MG in IV Premix 1 EACH IV SCH (15:00)
--- NOTE | 2017-04-28 16:10 | NUR ---
P: Comfort I: Dr. Rosales here to talk with DPRACIEL and Dr. Guillory here as well. Morphine gtt started at 1mg/hr but had to increase to 3mg/hr as pt cries out in pain and is diaphoretic. CORDUROY CUTTING SUPERVISOR Morphine dc'd as pt is not able to push the button. Haldol 0.5mg IV given for anxiety. Monitor dc'd and pt transferred to floor care with complete comfort care. RT slowly weaning off high flow O2. Family was at bedside but has left for now. Oral care prn. Turn Q 2 hours for comfort. Scd's removed. Joseph for pt comfort. E: Appears comfortable at this time. S: Restraints on until high flow weaned off then will be dc'd. Family wants pt to be careful and not gasping for air. Family okay with restraints on at this time.
--- NOTE | 2017-04-28 16:29 | NUR ---
Wound Note Wound evaluation ordered due to skin concerns at sacrum. 87 yo male admitted to [facility] with chest pain. Skin assessment reveals 2 small stage 1 Pressure injuries at the right and left buttock that are 1.5 cm in diameter each, no drainage or broken skin at this time. Cleaned areas with saline and replaced mepilex adhesive foam dressings more or less to protect patients skin in these areas. Patient was placed in left sidelying. Patient is on an appropriate bed recommend mepilex dressings to buttocks changed q 48 hrs or prn for soiling.
--- NOTE | 2017-04-28 19:07 | PROG NOTE ---
[address] [address] PROGRESS NOTE PATIENT: ALEXANDRA GUTIERREZ : 1930 MR#: [id number] ADMIT: 04/24/2017 JOB ID: [id number] DATE: 04/28/2017 The patient apparently was awake earlier today complaining of chest pain and dyspnea and anxiety. He has been remedicated and is currently again lethargic. His echocardiogram was completed and demonstrates severe left ventricular systolic dysfunction with an extensive anteroapical septal wall motion abnormality consistent with severe ischemia in the LAD distribution. I reviewed the patient's care with his son and daughter who were in the room today with their spouses. They are, at this point, understanding of the complexities of proceeding with diagnostic coronary angiography given his dementia and age and ventricular dysfunction. They have been in contact with Palliative Care and all are very much in agreement that he will be kept comfortable with hospice care in the hospital here and not proceed with any further intervention. At this point, Cardiology will sign off of his care since he is COMFORT CARE MEASURES ONLY. All of the family had an opportunity to review any questions that they had with me, and I think that it is a very reasonable discussion and decision to proceed with hospice care for this unfortunate elderly gentleman.
--- NOTE | 2017-04-28 20:40 | NUR ---
Comfort Care Patient resting in bed, Morphine gtt at 3mg/hr, no s/sx of resp distress or pain. No anxiety noted, titrating HF O2 off, currently at 50% FIO2, planning to transfer to room 3014 when HF O2 is weaned off.
--- NOTE | 2017-04-28 22:24 | NUR ---
GOLD RING- safe keeping Patient arrived to room 3014 at 2215, gold ring on left finger, fingers swollen. HORSE BREAKER applied soap to left ring finger, removed gold ring. Placed in bag in locked medication drawer. No family in room at this time, patient is minimally responsive. Will pass on to day RN. Trevor board updated.
--- NOTE | 2017-04-28 22:29 | NUR ---
Transfer Patient transferred to room 3014 at 2215. Morphine infusion at 3mg/hr. Patient appears comfortable. RR 12. Minimally responsive. Comfort care orders in place. Will monitor closely.
--- NOTE | 2017-04-29 00:19 | NUR ---
Transfer 2215 Report called to RN receiving patient, all questions answered, patient transferred to room 3014, on Morphine gtt infusing at 3mg/hr, DPOA notified that patient is transferring to room 3014, no distress noted, all belongings sent with patient.
--- NOTE | 2017-04-29 04:04 | NUR ---
Respiratory Patient has audible gurgles in throat with breathing. MD paged- new order for Scopolamine patch. Placed behind left ear. Patient has regular breathing pattern, 14/minute. Nasal cannula remains in place for patient comfort at 6L/min.
[2017-04-29] MEDS: 0.9% Sodium Chloride 1,000 ML IV SCH (07:41)
[2017-04-29] MEDS ORDERED: Furosemide 10 mg/mL 4 mL Inj IVPUSH SCH (08:45)
--- NOTE | 2017-04-29 08:57 | PCM.PALLBR ---
Palliative Care Recommendation Summary of palliative recommendations: Symptom management (Pain/other): Continuing with comfort care. 1. Continue morphine drip 2. Wean down supplemental oxygen. Will decrease to 4L/min now and then anticipate decreasing to 2L/min in 2 hours 3. Start glycopyrrolate 0.4mg IV every 6 hours and Lasix 40mg IV daily for secretion control DPOA/Advanced Directives/POLST: 1. Code Status: DNR/DNI 2. Step-daughter Kimberly is patient's HCPOA. 04/28: After Dr. Rosales counseled family on pt's deteriorating heart function, Dr. Diaz met with family at bedside. Patient transitioned to comfort care today after discussion with family. Dr. Diaz counseled family that the patient may be moved to another room outside of CCU, depending on CCU needs. They understand. Prognosis: poor. Pt will in hosptial. Anticipate 24hours 04/25: on meeting with Step-dtr Kimberly and her Jefferson, they are alarmed at episode of chest pain Mr. Arevalo had this morning. They talked to him about re -considering the idea of a cardiac intervention to see if it can be tried. They want to speak with caustic cresylate shift superintendent and hospitalist about this. We are deferring any discussion of hospice now as they seem to be more interested in cardiac catheterization to see if any blockage can be relieved. Dr. Diaz discussed family decision with Dr. Hand, who will re-consult cardiology. 04/24: Palliative Care Conference with Family: Kimberly and her Jefferson are at bedside for discussion today. Pt in too much pain to discuss LT goals. We all agree that pain relief is first priority for him, and we will discuss hospice as a possible option tomorrow. Family/emotional support: Step-dtr Kimberly is POA for both patient and his (her mother): Kimberly (step -dtr/POA) cell: [phone] Her Jefferson Lorenzana (DARRIUS) cell: [phone], Their home: Kimberly and Jefferson Sanchez (son) [phone], , Spiritual support: not discussed today Family Goals: allow pt to a natural from his coronary disease. Keep him comfortable in the meantime. Problems: Resuscitation Status Resuscitation Status: DNR/DNI:Do Not Resuscitate/Intubate Limited Interventions: Medications and IV Fluid POLST Updates/Changes Previous POLST?: No Total time 35 minutes; >50% face to face with patient and/or family, providing counselling regarding plans and recommendations, and in care coordination with his/her medical teams. Attending Statement Dr. Diaz physically present and available to resident at all times. We discussed management plan together and I approve of Dr. Chavez's documentation above. Palliative Brief Note Date of Service Apr 29, 2017 . Rounded on patient today with Dr. Diaz. Prior to visiting, the records in the EMR were reviewed. Overnight the patient was moved from [facility] to [facility]. High flow oxygen has been weaned down to nasal cannula 6L/min. Patient's family - Kimberly (step dtr and HCPOA) and her , are at bedside this morning. Patient is seen in bed and has audible secretions. He appears comfortable. Discussed with family that the patient will likely within 24 hours and they are understanding. Exam: General: Frail elderly gentleman lying in bed; Appears comfortable; No acute distress HEENT: Nasal cannula in place; Mouth open Lung: Coarse, wet sounds emanating from esophagus Cardiac: Difficult to appreciate due to coarse and wet esophageal sounds Skin: Mottling of skin at the knees Extremities: Palpable pulses; Cool to the touch Rest of the examination deferred for patient comfort Jose Chavez DO Apr 29, 2017 08:57 Sosa Diaz MD Apr 29, 2017 10:56
[2017-04-29] MEDS ORDERED: Glycopyrrolate 0.2 MG/ML 1mL Inj IVPUSH SCH (09:00)
--- NOTE | 2017-04-29 10:00 | NUR ---
Social Work-continued d/c planning: Data:EMR Reviewed. Pt is on day 5 of hospitalization for non stemi per H&P. SW updated in morning rounds that pt has been switched to inpt and will likely pass in the hospital. No anticipated discharge needs. SW will continue to follow. Assessment:pt who is on comfort care. Plan:Pt who has been placed on comfort care. Pt expected to pass in the next 24 hours. No anticipated discharge needs. SW will continue to follow. JEREMIE Moise
--- NOTE | 2017-04-29 10:16 | NUR ---
Social Work-discharge: Data& assessment:SW updated by charge histotechnologist that pt has . home list has been provided. No other SW needs identified. Plan:Pt has pass here at [facility]. No other SW needs identified. JEREMIE Moise
--- NOTE | 2017-04-29 10:33 | NUR ---
Pt this AM at 1009, family at bedside. Donation line called at 1025, per ELLEN, pt is not a candidate. Ref #[id number]. [facility] office called at 1030, per moisés HICKEYer, no VAA number required. Vi Harris took pt's wedding ring home. All other belongings sent with pt. Family is deciding on a home, will notify this RN when decision made. Addendum: 04/29/17 at 1533 by AARON HAZEL RN Pt's DANIEL Harris phoned and stated they had decided on a home: [employer] [phone]. Admitting Counselor notified of this.
--- NOTE | 2017-04-29 11:57 | PCM.DC.MEX ---
Discharge Summary Date of Service Apr 29, 2017 Dates of Hospitalization Date of Hospital Admission Apr 24, 2017 at 02:58 Date of Expiration: Apr 29, 2017 Time of Expiration: 10:09 Providers: Admitting Physician: Demetrio Summers MD Primary Care Physician: Damián Attending Physician: Demetrio Summers MD Diagnosis at Time of Cardiogenic shock Additional Diagnosis NSTEMI Respiratory failure Hospital-acquired pneumonia Consultations Cardiology, Dr. Zambrano Palliative Care, Dr. Diaz Procedures XRay, CTs & MRIs Chest x-ray on 04/23/2017: IMPRESSION: Acute disease is not seen a semiupright portable chest. Dictated by: Matt Pink M.D. on 04/23/2017 at 21:04 ECG 12 Lead Sinus rhythm rate 63, RBBB, LAFB, ST depression in leads I, II, V3-V6 Brief History As per admission history of present illness by admitting physician , "This is a 87 year old male with past medical history significant for diabetes mellitus type 2, hypertension, hyperlipidemia, CAD, and CVA who presents with chest pain. He initially came to the emergency department yesterday evening and discharged home. Since the discharge the pain has progressively worsened. The pain is described as a substernal pain with radiation down arms to level of elbow bilaterally. The pain is worse with exertion. The pain has been present for several weeks with exertion but worsened this evening. During EMS transport he received nitroglycerin and morphine with relief of chest pain. He denies any shortness of breath, nausea, vomiting, diarrhea, constipation, or diaphoresis. His most recent admission to [facility] was on 04/10/2017 at which time he was diagnosed with a NSTEMI and desired medical therapy only. He was discharged on Plavix, aspirin, and imdur. He declined amlodipine which was also recommended on discharge. Initial vital signs were temp 36.7c, pulse 64, respiratory rate 18, blood pressure 135/56, and satting at 92% on room air. Laboratory values from yesterday evening included WBC 11.5, hgb 13.6, hct 39.9, and platelets 272. Sodium 133, glucose 104. AST 42, ALT 45. Troponin .064. Repeat troponin .143. Chest x-ray showed no acute cardiopulmonary disease. In the ED the patient was given enoxaparin 80mg and nitroglycerin. " Hospital Course This is carlos sick elderly male transferred overnight with SOB, agitation and acute systolic failure. He was admitted 3 days ago with NSTEMI but refused intervention at that time , though this is a complicated matter given his advanced age and co-morbidities Continue heparin drip for NSTEMI On ASA, Plavix, Metoprolol and Atorvastatin New symptoms are due to acute heart failure due to [place] On diuretics. Fluid restriction , I/O charting Cardiology consult and recommendation noted. Discussed with palliative care about consultation and possible hospice . Meeting with family was held. Severity of chest pain, unresponsive to medical management, which appeared to be related to anginal symptoms, cardiac catheterization was thought to be the only possible intervention which may provide patient with a quality of life that he desired. Cardiology met with patient discussed risks and benefits like to proceed with catheterization as previously discussed. He was made nothing by mouth, and physician from Lovenox to heparin in anticipation of cardiac catheterization which would have been conducted yesterday morning, however the night before he developed declining respiratory function. Pneumonia was diagnosed, thought to be healthcare associated given patient's recent hospitalization. He required high flow oxygen for adequate oxygenation, but condition does not improve with medical management. As such the decision to proceed with cardiac catheterization was reconsidered, patient was transitioned to comfort care given persistent chest pain and anginal symptoms. Patient received adequate pain control via GRAY TENDER and comfortably. Exam Test 04/24/17 06:00 04/24/17 08:49 04/24/17 13:19 04/28/17 01:20 Hold Urine Received (Received) Troponin T 0.144ug/L (0.0-0.011) Urine Color Yellow (YELLOW) Urine Appearance Clear (CLEAR,HAZY) Urine pH 6.5 (5.0-8.0) Urine Specific [place] 1.005 (1.003-1.035) Urine Protein Negativemg/dL (NEG,TRACE) Urine Glucose (UA) Negativemg/dL (NEGATIVE) Urine Ketones Negativemg/dL (NEGATIVE) Urine Occult Blood Negative (NEGATIVE) Urine Nitrite Negative (NEGATIVE) Urine Bilirubin Negative (NEGATIVE) Urine Urobilinogen Normalmg/dL (NORMAL) Urine Leukocyte Esterase Negative (NEGATIVE) Urine RBC 0-2/hpf (0-2) Urine WBC 0-5/hpf (0-5) Urine Epithelial Cells Occasional/hpf (NONE-MOD) Urine Crystals None seen (NONE SEEN) Urine Bacteria None/hpf (NONE-FEW) Urine Hyaline Casts None/lpf (NONE) Urine Granular Casts None seen (NONE SEEN) Urine Waxy Casts None seen (NONE SEEN) Urine Red Blood Cell Casts None seen (NONE SEEN) Urine White Blood Cell Casts None seen (NONE SEEN) Urine Mucus None seen (None Seen) Urine Trichomonas None seen (NONE SEEN) Urine Yeast None (NONE SEEN) Urinalysis Comment None Urine Culture Reflexed Not indicated Prothrombin Time 10.8sec (8.1-12.5) Prothromb Time International Ratio 1.01ratio Total Bilirubin 0.8mg/dL (0.0-1.2) Aspartate Amino Transf (AST/SGOT) 83U/L (0-50) Alanine Aminotransferase (ALT/SGPT) 36U/L (0-44) Alkaline Phosphatase 57U/L (25-160) Pro-B-Type Natriuretic Peptide 83318ys/mL (0-486) Total Protein 7.3g/dL (6.4-8.4) Albumin 3.6g/dL (3.4-5.0) Procalcitonin 0.19ng/mL (0.00-0.08) Test 04/28/17 04:15 04/28/17 10:30 04/28/17 11:45 White Blood Count 19.9th/mm3 (3.8-10.1) Red Blood Count 4.55mil/mm3 (4.40-5.80) Hemoglobin 14.2g/dL (13.8-17.2) Hematocrit 42.1% (41.0-50.0) Mean Corpuscular Volume 92.5fL (81-100) Mean Corpuscular Hemoglobin 31.2pg (27.0-35.0) Mean Corpuscular Hemoglobin Concent 33.7% (32.0-37.0) Red Cell Distribution Width 13.6% (12.3-15.4) Platelet Count 338bil/L (150-400) Neutrophils (%) (Auto) 75.4% (40-74) Lymphocytes (%) (Auto) 15.9% (14-46) Monocytes (%) (Auto) 7.9% (4-12) Eosinophils (%) (Auto) 0.1% (0-5) Basophils (%) (Auto) 0.2% (0-3) Sodium Level 129mEq/L (134-144) Potassium Level 4.6mEq/L (3.5-5.2) Chloride Level 94mEq/L (97-108) Carbon Dioxide Level 13mmol/L (18-29) Blood Urea Nitrogen 19mg/dL (8-27) Creatinine 1.10mg/dL (0.76-1.27) Estimat Glomerular Filtration Rate 67mL/min (>59) Glucose Level 383mg/dL (60-99) Calcium Level 8.9mg/dL (8.5-10.1) Lactic Acid Level 2.2mmol/L (0.4-2.0) Activated Partial Thromboplast Time 47.6sec (22.8-33.0) Time spent 20 minutes (case discussed with family during this time patient had passed soon before I came to room for medical evaluation) Kale Hand DO Apr 29, 2017 11:56
--- NOTE | 2017-04-29 14:45 | NUR ---
Palliative care note D/A: Case discussed today in [facility] rounds. Pt felt to be nearing end of life and will most likely be comfort care here. Note that past [facility] notes have indicated that pt indicated that his spouse had hospice at home and that he was a caregiver. As pt was nearing eol-this worker wished to notify hospice. Phone call to Gracie verma and she notes that agency does not have a female pt by the name of Mickey and do not have any pts currently at [facility]. Unable to discern if pt really does have a spouse on hospice. Phone call to orly Quiles and have left message for her regarding above. Pt recently . P: No further need for palliative care to follow. Jacqueline LEVINE, CCM
== END 2017-04-29 10:09 | disposition expired ==
LOC: SED 02:11 → MPC 02:58 → CCU 04-28 01:15 → PCC 04-28 15:40 → MPC 04-28 22:10
PROVIDERS: ADMIT Hospitalist; ATTEND Hospitalist
PROC: 5A09457 Assistance with Respiratory Ventilation, 24-96 Consecutive Hours, Continuous Positive Airway Pressure (ICD-10-PCS; principal; 2017-04-28)
PROC: 4A033B1 Measurement of Arterial Pressure, Peripheral, Percutaneous Approach (ICD-10-PCS; 2017-04-28)
DX: I22.2 Subsequent non-ST elevation (NSTEMI) myocardial infarction (principal); I50.21 Acute systolic (congestive) heart failure; G92 Toxic encephalopathy; J18.9 Pneumonia, unspecified organism; J96.00 Acute respiratory failure, unspecified whether with hypoxia or hypercapnia; E87.2 Acidosis; E87.1 Hypo-osmolality and hyponatremia; I21.4 Non-ST elevation (NSTEMI) myocardial infarction; R57.0 Cardiogenic shock; I10 Essential (primary) hypertension; E78.5 Hyperlipidemia, unspecified; Z66 Do not resuscitate; E11.9 Type 2 diabetes mellitus without complications; I25.10 Atherosclerotic heart disease of native coronary artery without angina pectoris; F03.90 Unspecified dementia, unspecified severity, without behavioral disturbance, psychotic disturbance, mood disturbance, and anxiety; Z51.5 Encounter for palliative care; T42.4X5A Adverse effect of benzodiazepines, initial encounter; Z86.73 Personal history of transient ischemic attack (TIA), and cerebral infarction without residual deficits; Z79.82 Long term (current) use of aspirin; Z87.891 Personal history of nicotine dependence; Z79.4 Long term (current) use of insulin